=== PATIENT | male | born 1965 | race Caucasian/White ===

== ENCOUNTER → 2016-05-07 | Outpatient (REF) | payer OTHER ==
[2016-05-07 11:52] LABS: BASO # 0.1 K/mm3 (0.0-0.2); BASO % 0.7 % (0.0-1.0); EOS # 0.4 K/mm3 (0.0-0.50); EOS % 3.6 % (0.0-3.0); LARGE UNSTAINED CELL # 0.1 K/mm3 (0.0-0.4); LYMPH # 2.1 K/mm3 (1.5-4.5); LYMPH % 17.4 % (24.0-44.0); MEAN CORPUSCULAR HEMOGLOBIN 30.5 pg (27.0-33.0); MEAN CORPUSCULAR HGB CONC 33.1 g/dl (32.0-36.5); MEAN CORPUSCULAR VOLUME 92.2 fl (80.0-96.0); MONO # 0.6 K/mm3 (0.0-0.8); MONO % 5.1 % (0.0-5.0); NEUTROPHILS # 8.2 K/mm3 (1.8-7.7); NEUTROPHILS % 72.2 % (36.0-66.0); PLATELET COUNT, AUTOMATED 220 k/mm3 (150-450); RED CELL DISTRIBUTION WIDTH 13.4 % (11.5-14.5); WHITE BLOOD COUNT 11.3 K/mm3 (4.0-10.0)
[2016-05-07 12:12] LABS: ALBUMIN 4.2 GM/DL (3.2-5.2); ALBUMIN/GLOBULIN RATIO 1.35 (1.00-1.93); ALKALINE PHOSPHATASE 82 U/L (45-117); ALT/SGPT 29 U/L (12-78); ANION GAP 9 MEQ/L (8-16); AST/SGOT 18 U/L (15-37); BILIRUBIN,TOTAL 0.5 MG/DL (0.2-1.0); BLOOD UREA NITROGEN 17 MG/DL (7-18); CALCIUM LEVEL 9.3 MG/DL (8.5-10.1); CARBON DIOXIDE LEVEL 28 MEQ/L (21-32); CHLORIDE LEVEL 107 MEQ/L (98-107); CHOLESTEROL LEVEL 148 MG/DL (<200); CREATININE FOR GFR 1.06 MG/DL (0.70-1.30); GLOMERULAR FILTRATION RATE > 60.0 (>56); GLUCOSE, FASTING 94 MG/DL (70-105); POTASSIUM SERUM 4.2 MEQ/L (3.5-5.1); SODIUM LEVEL 144 MEQ/L (136-145); TOTAL PROTEIN 7.3 GM/DL (6.4-8.2); TRIGLYCERIDES LEVEL 146 MG/DL (<150)
== END ==
LOC: M SFHCCLAY 09:00
PROVIDERS: ATTEND Family Medicine
DX: R51 Headache (principal); R40.4 Transient alteration of awareness; E78.2 Mixed hyperlipidemia

== ENCOUNTER → 2016-05-27 | Outpatient (REF) | payer OTHER ==
[2016-05-27 13:43] LABS: BASO # 0.1 K/mm3 (0.0-0.2); BASO % 0.6 % (0.0-1.0); EOS # 0.2 K/mm3 (0.0-0.50); EOS % 2.2 % (0.0-3.0); LARGE UNSTAINED CELL # 0.2 K/mm3 (0.0-0.4); LARGE UNSTAINED CELL % 1.4 % (0.0-4.0); LYMPH # 2.5 K/mm3 (1.5-4.5); LYMPH % 20.9 % (24.0-44.0); MEAN CORPUSCULAR HEMOGLOBIN 30.4 pg (27.0-33.0); MEAN CORPUSCULAR HGB CONC 33.3 g/dl (32.0-36.5); MEAN CORPUSCULAR VOLUME 91.3 fl (80.0-96.0); MONO # 0.6 K/mm3 (0.0-0.8); MONO % 5.4 % (0.0-5.0); NEUTROPHILS # 7.7 K/mm3 (1.8-7.7); NEUTROPHILS % 69.5 % (36.0-66.0); PLATELET COUNT, AUTOMATED 224 k/mm3 (150-450); RED CELL DISTRIBUTION WIDTH 13.4 % (11.5-14.5)
[2016-05-27 13:56] LABS: ALBUMIN 4.2 GM/DL (3.2-5.2); ALBUMIN/GLOBULIN RATIO 1.35 (1.00-1.93); ALKALINE PHOSPHATASE 76 U/L (45-117); ALT/SGPT 33 U/L (12-78); ANION GAP 8 MEQ/L (8-16); AST/SGOT 16 U/L (15-37); BILIRUBIN,TOTAL 0.6 MG/DL (0.2-1.0); BLOOD UREA NITROGEN 17 MG/DL (7-18); CALCIUM LEVEL 9.5 MG/DL (8.5-10.1); CARBON DIOXIDE LEVEL 24 MEQ/L (21-32); CHLORIDE LEVEL 109 MEQ/L (98-107); CREATININE FOR GFR 0.96 MG/DL (0.70-1.30); GLOMERULAR FILTRATION RATE > 60.0 (>56); GLUCOSE, FASTING 97 MG/DL (70-105); POTASSIUM SERUM 4.4 MEQ/L (3.5-5.1); SODIUM LEVEL 141 MEQ/L (136-145); TOTAL PROTEIN 7.3 GM/DL (6.4-8.2)
[2016-05-27 14:44] LABS: ERYTHROCYTE SEDIMENTATION RATE 5 mm/hr (0-20)
== END ==
LOC: M LABNEURO 12:55
PROVIDERS: ATTEND Psychiatry & Neurology Neurology
DX: R51 Headache (principal)

== ENCOUNTER → 2016-11-26 | Outpatient (CLI) | payer OTHER ==
--- NOTE | 2016-11-27 01:27 | REP ---
Clinical: Chest pain . Comparison: None . Technique: PA and lateral. Findings: The mediastinum and cardiac silhouette are normal. The lung locke demonstrate presumed chronic biapical scarring without acute consolidation, effusion, or pneumothorax. The skeletal structures are intact and normal. Impression: 1. Chronic-appearing biapical scarring. 2. No acute cardiopulmonary process. 3. If the patient remains symptomatic consider chest CT for further investigation.
== END ==
LOC: M CLY 08:23
PROVIDERS: ATTEND Family Medicine
DX: R07.9 Chest pain, unspecified (principal)

== ENCOUNTER → 2017-05-27 | Outpatient (REF) | payer OTHER ==
[2017-05-27 11:50] LABS: ALBUMIN 4.1 GM/DL (3.2-5.2); ALBUMIN/GLOBULIN RATIO 1.28 (1.00-1.93); ALKALINE PHOSPHATASE 71 U/L (45-117); ALT/SGPT 20 U/L (12-78); ANION GAP 4 MEQ/L (8-16); AST/SGOT 15 U/L (7-37); BILIRUBIN,TOTAL 0.8 MG/DL (0.2-1.0); BLOOD UREA NITROGEN 13 MG/DL (7-18); C REACTIVE PROTEIN QUANTITATIV < 0.30 MG/DL (0.00-0.30); CALCIUM LEVEL 8.9 MG/DL (8.5-10.1); CARBON DIOXIDE LEVEL 28 MEQ/L (21-32); CHLORIDE LEVEL 109 MEQ/L (98-107); CHOLESTEROL LEVEL 144 MG/DL (<200); CHOLESTEROL RISK RATIO 3.512 (<5); CREATININE FOR GFR 1.03 MG/DL (0.70-1.30); GLOMERULAR FILTRATION RATE > 60.0 (>56); GLUCOSE, FASTING 73 MG/DL (70-100); HDL CHOLESTEROL 41 MG/DL (>40); LDL CHOLESTEROL 75.6 MG/DL (<100); NON-HDL-C 103 MG/DL; POTASSIUM SERUM 4.3 MEQ/L (3.5-5.1); RHEUMATOID FACTOR QUANT < 10.0 IU/ML (<15.0); SODIUM LEVEL 141 MEQ/L (136-145); TOTAL PROTEIN 7.3 GM/DL (6.4-8.2); TRIGLYCERIDES LEVEL 137 MG/DL (<150)
[2017-05-27 12:07] LABS: ERYTHROCYTE SEDIMENTATION RATE 2 mm/hr (0-20)
[2017-05-28 14:16] LABS: Lyme Disease IgG/IgM Antibodie <0.91 ISR (0.00-0.90); Lyme Disease IgM Ab Quantitati <0.80 index (0.00-0.79)
[2017-05-29 00:07] LABS: ANA (HEP2) Negative (.)
[2017-05-29 00:07] LABS: CYCLIC CITRULLINATED PEPTIDE 2 units (0-19)
== END ==
LOC: M SFHCCLAY 08:02
DX: M25.541 Pain in joints of right hand (principal); E78.2 Mixed hyperlipidemia; M25.542 Pain in joints of left hand
CPT/HCPCS: 85652

== ENCOUNTER → 2017-07-01 | Outpatient (REF) | payer OTHER ==
[2017-07-01 19:10] LABS: ESTIMATED AVERAGE GLUCOSE 111 MG/DL (60-110); HEMOGLOBIN A1c 5.5 %
[2017-07-01 19:32] LABS: FOLATE 11.7 NG/ML; TOTAL 25(OH) VITAMIN D 27.9 NG/ML (30.0-100.0)
[2017-07-01 19:34] LABS: ALBUMIN 4.1 GM/DL (3.2-5.2); ALBUMIN/GLOBULIN RATIO 1.32 (1.00-1.93); ALKALINE PHOSPHATASE 70 U/L (45-117); ALT/SGPT 19 U/L (12-78); ANION GAP 11 MEQ/L (8-16); AST/SGOT 11 U/L (7-37); BILIRUBIN,TOTAL 0.6 MG/DL (0.2-1.0); BLOOD UREA NITROGEN 11 MG/DL (7-18); CALCIUM LEVEL 8.8 MG/DL (8.5-10.1); CARBON DIOXIDE LEVEL 24 MEQ/L (21-32); CHLORIDE LEVEL 108 MEQ/L (98-107); CREATININE FOR GFR 1.05 MG/DL (0.70-1.30); GLOMERULAR FILTRATION RATE > 60.0 (>56); GLUCOSE, FASTING 129 MG/DL (70-100); POTASSIUM SERUM 4.2 MEQ/L (3.5-5.1); RHEUMATOID FACTOR QUANT < 10.0 IU/ML (<15.0); SODIUM LEVEL 143 MEQ/L (136-145); TOTAL PROTEIN 7.2 GM/DL (6.4-8.2)
[2017-07-01 19:41] LABS: ERYTHROCYTE SEDIMENTATION RATE 1 mm/hr (0-20)
[2017-07-01 20:51] LABS: BASO # 0.1 10^3/uL (0.0-0.2); BASO % 0.9 % (0.0-1.0); EOS # 0.3 10^3/uL (0.0-0.50); EOS % 2.6 % (0.0-3.0); HEMATOCRIT 36.9 % (42.0-52.0); HEMOGLOBIN 12.2 g/dl (13.5-17.5); IMMATURE GRANULOCYTE % 0.4 % (0-3.0); LYMPH # 2.7 10^3/uL (1.5-4.5); LYMPH % 24.2 % (24.0-44.0); MEAN CORPUSCULAR HEMOGLOBIN 29.9 pg (27.0-33.0); MEAN CORPUSCULAR HGB CONC 33.1 g/dl (32.0-36.5); MEAN CORPUSCULAR VOLUME 90.4 fl (80.0-96.0); MONO # 0.7 10^3/uL (0.0-0.8); MONO % 6.1 % (0.0-5.0); NEUTROPHILS # 7.3 10^3/uL (1.8-7.7); NEUTROPHILS % 65.8 % (36.0-66.0); PLATELET COUNT, AUTOMATED 269 10^3/uL (150-450); RED BLOOD COUNT 4.08 10^6/uL (4.30-6.10); RED CELL DISTRIBUTION WIDTH 13.6 % (11.5-14.5)
[2017-07-02 08:26] LABS: VITAMIN B12 LEVEL 357 PG/ML
[2017-07-05 11:28] LABS: ALBUMIN 4.52 GM/DL (3.29-5.55); ALBUMIN % 62.8 % (55.8-66.1); ALPHA-1-GLOBULIN % 4.5 % (2.9-4.9); ALPHA-1-GLOBULINS 0.32 GM/DL (0.17-0.41); ALPHA-2-GLOBULINS 0.81 GM/DL (0.42-0.99); ALPHA-2-GLOBULINS % 11.3 % (7.1-11.8); BETA-1-GLOBULINS 0.42 GM/DL (0.28-0.60); BETA-1-GLOBULINS % 5.8 % (4.7-7.2); BETA-2-GLOBULINS 0.27 GM/DL (0.19-0.55); BETA-2-GLOBULINS % 3.7 % (3.2-6.5); GAMMA GLOBULIN % 11.9 % (11.1-18.8); GAMMA GLOBULINS 0.86 GM/DL (0.65-1.58)
[2017-07-06 00:09] LABS: ANTI DOUBLE STRAND-DNA AB <1 IU/mL (0-9); ANTINUCLEAR ANTIBODIES DIRECT Negative (Negative); COPPER PLASMA 105 ug/dL (72-166); LEAD BLOOD ADULT 2 ug/dL (0-19); Lyme Disease IgG/IgM Antibodie <0.91 ISR (0.00-0.90); Lyme Disease IgM Ab Quantitati <0.80 index (0.00-0.79); SJOGREN'S ANTI SS-A <0.2 AI (0.0-0.9); SJOGREN'S ANTI SS-B <0.2 AI (0.0-0.9)
[2017-07-06 09:14] LABS: PTT LUPUS TYPE ANTICOAG SCREEN 0.9 (0-1.2)
== END ==
LOC: M LABNEURO 13:41
DX: G62.9 Polyneuropathy, unspecified (principal)

== ENCOUNTER 2017-07-16 08:30 | Day surgery (SDC) | payer OTHER ==
[2017-07-16] MEDS ORDERED: PROPOFOL 200 MG/20 ML VIAL As Ordered ×2 (09:09)
[2017-07-16] MEDS ORDERED: LIDOCAINE 2% INJ 100 MG/5 ML SDV (FOR ANES.) As Ordered (09:09)
== END 2017-07-16 10:50 | disposition home or self-care (01) ==
LOC: M OPP 08:30
DX: Z12.11 Encounter for screening for malignant neoplasm of colon (principal); Z80.0 Family history of malignant neoplasm of digestive organs; D12.3 Benign neoplasm of transverse colon; D12.0 Benign neoplasm of cecum; K62.1 Rectal polyp; K64.8 Other hemorrhoids; E78.5 Hyperlipidemia, unspecified; I44.60 Unspecified fascicular block; K62.5 Hemorrhage of anus and rectum; Z86.69 Personal history of other diseases of the nervous system and sense organs; Z87.09 Personal history of other diseases of the respiratory system; F17.210 Nicotine dependence, cigarettes, uncomplicated; Z79.82 Long term (current) use of aspirin; Z79.899 Other long term (current) drug therapy; Z80.1 Family history of malignant neoplasm of trachea, bronchus and lung; Z80.8 Family history of malignant neoplasm of other organs or systems
CPT/HCPCS: 45385

== ENCOUNTER → 2017-10-05 | Outpatient (CLI) | payer OTHER | LOC: M ONCR 10:18 | DX: D49.7 Neoplasm of unspecified behavior of endocrine glands and other parts of nervous system (principal) | CPT/HCPCS: 99201 ==

== ENCOUNTER 2017-10-12 14:38 | Outpatient (RCR) | payer OTHER | END 2017-10-29 | LOC: M ONCR 14:38 | DX: C70.0 Malignant neoplasm of cerebral meninges (principal) | CPT/HCPCS: 77300 ==

== ENCOUNTER 2017-11-02 09:28 | Outpatient (RCR) | payer OTHER | END 2017-11-28 | LOC: M ONCR 09:28 | DX: C70.0 Malignant neoplasm of cerebral meninges (principal) | CPT/HCPCS: 77336 ==

== ENCOUNTER 2017-11-29 14:24 | Outpatient (RCR) | payer OTHER | END 2017-12-29 | LOC: M ONCR 11-30 13:51 | DX: C70.0 Malignant neoplasm of cerebral meninges (principal) | CPT/HCPCS: 77336 ==

== ENCOUNTER → 2018-02-09 | Outpatient (CLI) | payer OTHER | LOC: M ONCR 09:49 | DX: C70.0 Malignant neoplasm of cerebral meninges (principal) | CPT/HCPCS: 99211 ==

== ENCOUNTER → 2018-05-27 | Outpatient (CLI) | payer OTHER ==
[~2018-05-27] MED LIST: ATOR1TAB21 PO; EQ A81TA PO; KEPP1SOL PO; KEPP1TAB PO
--- NOTE | 2018-05-27 10:17 | REP ---
LEFT HAND SERIES: Four views. HISTORY: Pain. FINDINGS: Four views of the left hand show overall normal mineralization. Joint spaces are preserved. No erosive changes seen. There is minimal spurring at the 1st MCP joint. Otherwise negative. 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 No erosive change. Otherwise negative
== END ==
LOC: M CLY 09:14
PROVIDERS: ATTEND Family Medicine
DX: M25.542 Pain in joints of left hand (principal); M19.042 Primary osteoarthritis, left hand

== ENCOUNTER → 2018-05-27 | Outpatient (REF) | payer OTHER ==
[2018-05-27 12:09] LABS: ALBUMIN 4.1 GM/DL (3.2-5.2); ALT/SGPT 19 U/L (12-78); BILIRUBIN,TOTAL 0.5 MG/DL (0.2-1.0); BLOOD UREA NITROGEN 15 MG/DL (7-18); CALCIUM LEVEL 9.3 MG/DL (8.5-10.1); CARBON DIOXIDE LEVEL 28 MEQ/L (21-32); CHLORIDE LEVEL 105 MEQ/L (98-107); CHOLESTEROL LEVEL 148 MG/DL (<200); CHOLESTEROL RISK RATIO 3.363 (<5); CREATININE FOR GFR 1.06 MG/DL (0.70-1.30); GLOMERULAR FILTRATION RATE > 60.0 (>56); GLUCOSE, FASTING 78 MG/DL (70-100); HDL CHOLESTEROL 44 MG/DL (>40); LDL CHOLESTEROL 88 MG/DL (<100); NON-HDL-C 104 MG/DL; POTASSIUM SERUM 4.4 MEQ/L (3.5-5.1); SODIUM LEVEL 139 MEQ/L (136-145); TRIGLYCERIDES LEVEL 82 MG/DL (<150)
== END ==
LOC: M SFHCCLAY 09:01
PROVIDERS: ATTEND Family Medicine
DX: E78.2 Mixed hyperlipidemia (principal)

== ENCOUNTER → 2019-03-08 | Outpatient (REF) | payer OTHER ==
[~2019-03-08] MED LIST changes: +ASPI-117 PO; -EQ A81TA PO
[2019-03-08 17:50] LABS: BASO # 0.1 10^3/uL (0.0-0.2); BASO % 1.1 % (0.0-1.0); EOS # 0.4 10^3/uL (0.0-0.5); EOS % 5.5 % (0.0-3.0); HEMATOCRIT 42.5 % (42.0-52.0); HEMOGLOBIN 13.4 g/dl (13.5-17.5); LYMPH # 2.2 10^3/uL (1.5-5.0); LYMPH % 29.1 % (24.0-44.0); MEAN CORPUSCULAR HEMOGLOBIN 29.3 pg (27.0-33.0); MEAN CORPUSCULAR HGB CONC 31.5 g/dl (32.0-36.5); MEAN CORPUSCULAR VOLUME 92.8 fl (80.0-96.0); MONO # 0.6 10^3/uL (0.0-0.8); MONO % 7.4 % (0.0-5.0); NEUTROPHILS # 4.2 10^3/uL (1.5-8.5); NEUTROPHILS % 56.6 % (36.0-66.0); PLATELET COUNT, AUTOMATED 257 10^3/uL (150-450); RED BLOOD COUNT 4.58 10^6/uL (4.30-6.10); WHITE BLOOD COUNT 7.4 10^3/uL (4.0-10.0)
[2019-03-08 17:54] LABS: BLOOD UREA NITROGEN 15 MG/DL (7-18); CALCIUM LEVEL 9.1 MG/DL (8.5-10.1); CARBON DIOXIDE LEVEL 26 MEQ/L (21-32); CHLORIDE LEVEL 110 MEQ/L (98-107); CREATININE FOR GFR 1.13 MG/DL (0.70-1.30); GLOMERULAR FILTRATION RATE > 60.0 (>56); GLUCOSE, FASTING 97 MG/DL (70-100); POTASSIUM SERUM 4.6 MEQ/L (3.5-5.1); SODIUM LEVEL 143 MEQ/L (136-145)
== END ==
LOC: M LABDRAWC 17:02
PROVIDERS: ATTEND Neurological Surgery
DX: C70.9 Malignant neoplasm of meninges, unspecified (principal)

== ENCOUNTER → 2019-11-28 | Outpatient (REF) | payer OTHER ==
[2019-11-28 16:24] LABS: HEMATOCRIT 44.2 % (42.0-52.0); HEMOGLOBIN 14.2 g/dl (13.5-17.5); MEAN CORPUSCULAR HEMOGLOBIN 28.7 pg (27.0-33.0); MEAN CORPUSCULAR HGB CONC 32.1 g/dl (32.0-36.5); MEAN CORPUSCULAR VOLUME 89.3 fl (80.0-96.0); PLATELET COUNT, AUTOMATED 256 10^3/uL (150-450); RED BLOOD COUNT 4.95 10^6/uL (4.30-6.10); WHITE BLOOD COUNT 8.4 10^3/uL (4.0-10.0)
[2019-11-28 18:57] LABS: ALBUMIN 4.1 GM/DL (3.2-5.2); ALT/SGPT 25 U/L (12-78); BLOOD UREA NITROGEN 19 MG/DL (7-18); CALCIUM LEVEL 9.4 MG/DL (8.5-10.1); CARBON DIOXIDE LEVEL 28 MEQ/L (21-32); CHLORIDE LEVEL 106 MEQ/L (98-107); CHOLESTEROL LEVEL 141 MG/DL (<200); CHOLESTEROL RISK RATIO 3.357 (<5); GLOMERULAR FILTRATION RATE > 60.0 (>56); GLUCOSE, FASTING 60 MG/DL (70-100); HDL CHOLESTEROL 42 MG/DL (>40); LDL CHOLESTEROL 75 MG/DL (<100); NON-HDL-C 99 MG/DL; POTASSIUM SERUM 4.6 MEQ/L (3.5-5.1); SODIUM LEVEL 137 MEQ/L (136-145); TOTAL PROTEIN 7.4 GM/DL (6.4-8.2); TRIGLYCERIDES LEVEL 118 MG/DL (<150)
== END ==
LOC: M SFHCCLAY 16:04
PROVIDERS: ATTEND Family Medicine
DX: E78.2 Mixed hyperlipidemia (principal)

== ENCOUNTER → 2020-02-06 | Outpatient (CLI) | payer OTHER | LOC: M LABSMTC 13:56 | PROVIDERS: ATTEND Pediatrics | DX: Z11.59 Encounter for screening for other viral diseases (principal) ==

== ENCOUNTER → 2020-06-18 | Outpatient (CLI) | payer OTHER ==
--- NOTE | 2020-06-18 10:15 | REP ---
INDICATION: ACUTE BILATERAL LOW BACK PAIN COMPARISON: None. TECHNIQUE: AP, lateral, bilateral oblique, and coned-down views of the lumbar spine. FINDINGS: Alignment and lordosis maintained. Vertebral bodies are intact. Disc spaces are relatively normal/age-appropriate. No acute fracture/compression injury or subluxation. No obvious spondylolysis or spondylolisthesis. IMPRESSION: Mild generalized age-related changes. If the patient remains symptomatic consider MRI for further investigation. <Electronically signed by Adarsh Mitchell > 06/18/20 1012
== END ==
LOC: M CLY 09:43
PROVIDERS: ATTEND Physician Assistant
DX: M54.5 Low back pain (principal)

== ENCOUNTER → 2020-11-21 | Outpatient (REF) | payer OTHER ==
[2020-11-21 12:50] LABS: BASO # 0.1 10^3/uL (0.0-0.2); BASO % 0.9 % (0.0-1.0); EOS # 0.4 10^3/uL (0.0-0.5); EOS % 3.8 % (0.0-3.0); HEMATOCRIT 44.6 % (42.0-52.0); HEMOGLOBIN 14.3 g/dl (13.5-17.5); LYMPH % 20.3 % (24.0-44.0); MEAN CORPUSCULAR HEMOGLOBIN 28.4 pg (27.0-33.0); MEAN CORPUSCULAR HGB CONC 32.1 g/dl (32.0-36.5); MEAN CORPUSCULAR VOLUME 88.5 fl (80.0-96.0); MONO # 0.7 10^3/uL (0.0-0.8); MONO % 6.9 % (2.0-8.0); NEUTROPHILS # 6.6 10^3/uL (1.5-8.5); NEUTROPHILS % 67.5 % (36.0-66.0); PLATELET COUNT, AUTOMATED 268 10^3/uL (150-450); RED BLOOD COUNT 5.04 10^6/uL (4.30-6.10); WHITE BLOOD COUNT 9.8 10^3/uL (4.0-10.0)
[2020-11-21 13:05] LABS: ALT/SGPT 20 U/L (12-78); BILIRUBIN,TOTAL 0.7 MG/DL (0.2-1.0); BLOOD UREA NITROGEN 15 MG/DL (7-18); CALCIUM LEVEL 9.3 MG/DL (8.5-10.1); CARBON DIOXIDE LEVEL 28 MEQ/L (21-32); CHLORIDE LEVEL 106 MEQ/L (98-107); CHOLESTEROL LEVEL 221 MG/DL (<200); GLOMERULAR FILTRATION RATE > 60.0 (>56); GLUCOSE, FASTING 91 MG/DL (70-100); HDL CHOLESTEROL 41 MG/DL (>40); LDL CHOLESTEROL 144 MG/DL (<100); MAGNESIUM LEVEL 2.4 MG/DL (1.8-2.4); NON-HDL-C 180 MG/DL; POTASSIUM SERUM 4.8 MEQ/L (3.5-5.1); SODIUM LEVEL 141 MEQ/L (136-145); TOTAL PROTEIN 7.1 GM/DL (6.4-8.2); TRIGLYCERIDES LEVEL 181 MG/DL (<150)
== END ==
LOC: M SFHCCLAY 09:18
PROVIDERS: ATTEND Family Medicine
DX: E78.2 Mixed hyperlipidemia (principal); R12 Heartburn

== ENCOUNTER → 2020-12-11 | Outpatient (CLI) | payer OTHER ==
[~2020-12-11] MED LIST changes: +PANT40TA29 PO; +TUMS500C PO
== END ==
LOC: M LABSMTC 11:00
PROVIDERS: ATTEND Anesthesiology
DX: Z01.812 Encounter for preprocedural laboratory examination (principal); Z11.52 Encounter for screening for COVID-19

== ENCOUNTER 2020-12-16 11:09 | Day surgery (SDC) | payer OTHER ==
[~2020-12-16] VITALS: Ht 177.8 cm; Wt 80.7 kg
[~2020-12-16 11:09] MED LIST changes: +LIDOCAINE 2% 100MG/5ML SDV (FOR ANES.) As Ordered ONE; +NS 1,000 ML IV ONE; +fentaNYL 100 MCG/2 ML INJECTION (J3010) As Ordered ONE; +propofoL 500 MG/50 ML VIAL As Ordered ONE
--- OUTSIDE RECORDS SUMMARY | 2020-12-16 11:12 | CCD | Continuity of Care Document ---
Author Author Jim COTTER Organization Unknown Address [address] [place] [address] Phone [phone] Care Team Providers Care Supervisory Clerk Name Role Phone J Carlos Mcgill D.O. AUTM [phone] Problems Active Problems Provider Date Intracranial meningioma Azalea Arthur M.D. Onset: 8 Social History Type Date Description Comments Sex Unknown Allergies, Adverse Reactions, Alerts Description No Known Drug Allergies Medications Active Medications SIG Qnty Indications Ordering Provide r Date Keppra 500mg Tablets 1 by mouth twice a day 60tabs Azalea Arthur M.D. 01/04/2018 Immunizations Description No Information Available Vital Signs Description No Information Available Results Description No Information Available Procedures Date Code Description Status 11/08/2020 86271 MRI Brain W/O Contrast, Followed By Contrast Completed 11/08/2020 36324 MRI Brain W/O Contrast, Followed By Contrast Completed 07/22/2020 36428 MRI Brain W/O Contrast, Followed By Contrast Completed 07/22/2020 08692 MRI Brain W/O Contrast, Followed By Contrast Completed Medical Devices Description No Information Available Encounters Description No Information Available Assessments Date Code Description Provider 11/08/2020 C70.9 Malignant neoplasm of meninges, unspecified Shirin Arthur M.D. 11/08/2020 C70.9 Malignant neoplasm of meninges, unspecified MRI 11/08/2020 I67.89 Other cerebrovascular disease Ab walter Arthur M.D. 11/08/2020 I67.89 Other cerebrovascular disease MR I 11/08/2020 Y84.2 Radiological procedu re and radiotherapy as the cause of abnormal reaction of the patient, or of later complication, without mention of misadventure at the time of the procedure Shirin Arthur M.D. 11/08/2020 Y84.2 Radiological procedu re and radiotherapy as the cause of abnormal reaction of the patient, or of later complication, without mention of misadventure at the time of the procedure MRI 07/22/2020 C70.9 Malignant neoplasm of meninges, unspecified Shirin Arthur M.D. 07/22/2020 C70.9 Malignant neoplasm of meninges, unspecified MRI Plan of Treatment No Information Available Functional Status Description No Information Available Mental Status Description No Information Available Referrals Refer to Reason for Referral Status Appt Date Created Created
--- OUTSIDE RECORDS SUMMARY | 2020-12-16 11:12 | CCD | Continuity of Care Document ---
Author Author Jim COTTER Organization Unknown Address [address] [place] [address] Phone [phone] Care Team Providers Care Electronic Organ Mechanic Name Role Phone J Carlos Mcgill D.O. AUTM [phone] Problems Active Problems Provider Date Intracranial meningioma [...] Information Available Procedures Date Code Description Status 07/22/2020 72874 MRI Brain W/O Contrast, Followed By Contrast Completed 07/22/2020 30324 MRI Brain W/O Contrast, Followed By Contrast Completed Medical Devices Description No Information Available Encounters Description No Information Available Assessments Date Code Description Provider 07/22/2020 C70.9 Malignant neoplasm of meninges, unspecified Shirin Arthur M.D. 07/22/2020 C70.9 Malignant neoplasm of meninges, unspecified MRI Plan of Treatment No Information Available Functional Status Description No Information Available Mental Status Description No Information Available Referrals Refer to Reason for Referral Status Appt Date Created
--- OUTSIDE RECORDS SUMMARY | 2020-12-16 11:12 | CCD ---
Author Author [facility] Organization [facility] Address Unknown Phone Unavailable Care Team Providers Care Furnace Mechanic Name Role Phone J Carlos Mcgill Unavailable PROBLEMS Type Condition ICD9-CM Code [id number] Code Onset Dates Condition S tatus W/U Status Risk SNOMED Code Notes Problem Acute left-sided low back pain with left-sided sciatica M54.42 Active confirmed 904296461 Problem Hx of colonic polyp Z86.010 Active confirmed 870938925 Problem Mixed hyperlipidemia E78.2 Active confirmed 028867026 Problem Meningioma, cerebral D32.0 Active confirmed 852435045 ALLERGIES No Known Allergies ENCOUNTERS from 1965 to 2020-11-22 Encounter Location Date Provider Diagnosis [address] [phone] [place] [address] Oct, J Carlos Mcgill Mixed hyperlipidemia E78.2 ; Meningioma, cerebral D32.0 ; Heartburn R12 ; Left lumbar radiculopathy M54.16 ; Tobacco abuse Z72.0 and Hx of colonic polyp Z86.010 IMMUNIZATIONS Vaccine Route Administration Date Status Moderna #2 dose COVID-19(given elsewhere) SARSCOV2 VAC 100MC G/0.5ML IM Unknown June 14, 2020 Administered COVID-19 dose #1 given elsewhere Unspecified Unknown Apr Administered SOCIAL HISTORY Tobacco Use: Social History Observation Description Date Details (start date - stop date) Current some day smoker Sex Assigned At : Social History Observation Description Sex Assigned At Unknown Audit Question Answer Notes Total Score: 0 Interpretation: Alcohol Education Language: Question Answer Notes Languages spoken: [place] Gnosticism: Question Answer Notes Gnosticism 33 None Sexual Hx: Question Answer Notes Had sex in the last 12 months (vaginal, oral, or anal)? No Have you ever had an STD? No Drug and Alcohol Question Answer Notes Total Score: 0 Interpretation: No problems reported Alcohol Screening: Question Answer Notes Did you have a drink containing alcohol in the past year? No Points 0 Interpretation Negative Tobacco Use: Question Answer Notes Are you a: current some day smoker Additional Findings: Tobacco User Moderate cigarette smoker (10-19 cigs/day) Smoking Cessation Information Given 11/21/2020 REASON FOR REFERRAL No Information VITAL SIGNS Weight 183.12 lbs Oct, Weight-kg 83.06 kg Oct, Height 5'10.5" in Oct, BMI 25.90 kg/m2 Oct, Heart Rate 62 /min Oct, Respiratory Rate 16 /min Oct, Temperature 98.3 degrees Fahrenheit Oct, Oximetry 97ra Oct, Blood pressure systolic 119 mm Hg Oct, Blood pressure diastolic 75 mm Hg Oct, MEDICATIONS Medication SIG (Take, Route, Frequency, Duration) Notes Start Da te End Date Status Atorvastatin Calcium 20 MG 1 tablet Orally Once a day for 90 day(s) Active Chantix 1 MG 1 tablet Orally Twice a day for 90 days Active Famotidine 40 MG 1 tablet at bedtime Orally Once a day for 90 day(s) Active PROCEDURES No Information RESULTS Component Value Reference Range CBC with Differential Reviewed date:11/21/2020 13:41:29 Interpretation:Normal Performing Lab:[facility], [facility] [address] [address] , ,[place] [address] WHITE BLOOD COUNT 9.8 4.0-10.0 RED BLOOD COUNT 5.04 4.30-6.10 HEMOGLOBIN 14.3 13.5-17.5 HEMATOCRIT 44.6 42.0-52.0 MEAN CORPUSCULAR VOLUME 88.5 80.0-96.0 MEAN CORPUSCULAR HEMOGLOBIN 28.4 27.0-33.0 MEAN CORPUSCULAR HGB CONC 32.1 32.0-36.5 RED CELL DISTRIBUTION WIDTH 14.2 11.5-14.5 PLATELET COUNT, AUTOMATED 268 150-450 NEUTROPHILS % 67.5 36.0-66.0 LYMPH % 20.3 24.0-44.0 MONO % 6.9 2.0-8.0 EOS % 3.8 0.0-3.0 BASO % 0.9 0.0-1.0 NEUTROPHILS # 6.6 1.5-8.5 LYMPH # 2.0 1.5-5.0 MONO # 0.7 0.0-0.8 EOS # 0.4 0.0-0.5 BASO # 0.1 0.0-0.2 Comprehensive Metabolic Profile (CMP) Reviewed date:11/21/2020 13:41:29 Interpretation:Normal Performing Lab:[facility] [address] [place] [address] , ,[place] [address] GLUCOSE, FASTING 91 70-100 BLOOD UREA NITROGEN 15 7-18 CREATININE FOR GFR 1.20 0.70-1.30 GLOMERULAR FILTRATION RATE > 60.0 >56 SODIUM LEVEL 141 136-145 POTASSIUM SERUM 4.8 3.5-5.1 CHLORIDE LEVEL 106 98-107 CARBON DIOXIDE LEVEL 28 21-32 CALCIUM LEVEL 9.3 8.5-10.1 AST/SGOT 14 7-37 ALT/SGPT 20 12-78 ALKALINE PHOSPHATASE 63 45-117 BILIRUBIN,TOTAL 0.7 0.2-1.0 TOTAL PROTEIN 7.1 6.4-8.2 ALBUMIN 4.0 3.2-5.2 ALBUMIN/GLOBULIN RATIO 1.3 LIPID PANEL (CARDIAC RISK) Reviewed date:11/21/2020 13:41:29 Interpretation:Abnormal Performing Lab:[facility] [address] [facility] [address] , ,[place] [address] TRIGLYCERIDES LEVEL 181 <150 CHOLESTEROL LEVEL 221 <200 HDL CHOLESTEROL 41 >40 LDL CHOLESTEROL 144 <100 NON-HDL-C 180 CHOLESTEROL RISK RATIO 5.390 <5 MAGNESIUM LEVEL Reviewed date:11/21/2020 13:41:29 Interpretation:Normal Performing Lab:[facility] [address] [facility] [address] , ,[place] [address] MAGNESIUM LEVEL 2.4 1.8-2.4 REASON FOR VISIT Patient states he has had some burning to outer aspect of right foot intermitten tly over past month- denies any injury. MEDICAL (GENERAL) HISTORY Type Description Date Medical History Seizure? Medical History Hyperlipidemia Medical History Colon polyps Medical History Malignant meningioma grade 3 - excision Dr Cali 07/2017 followed by radiation x 2 months- recurrence Mar 2019 Surgical History Colonoscopy- polyps- 3 yr f/u 06/2017 Surgical History Craniotomy- removal meningioma 07/2017 Surgical History Gamma knife- ? recurrent meningioma 03/20 19 Hospitalization History Seizure, [facility] 1999 Hospitalization History Collapsed lung 1988 Goals Section No Information Health Concerns No Information MEDICAL EQUIPMENT No Information MENTAL STATUS No Information FUNCTIONAL STATUS No Information ASSESSMENTS Encounter Date Diagnosis Assessment Notes Treatment Notes Treatm ent Clinical Notes Oct, Mixed hyperlipidemia (ICD-10 - E78.2) Lipids are well controlled. Will update labs annually in fall. Pt agreeable. Oct, Meningioma, cerebral (ICD-10 - D32.0) Pt is currently asymptomatic and he is following with Dr Cali. He is no longer following with radiation, Dr Ham and neurology, Dr Mei Arthur. Oct, Heartburn (ICD-10 - R12) Cont famotidne daily to see if helps. Pt agreeable. Oct, Left lumbar radiculopathy (ICD-10 - M54.16) No tx at this time consider PT or MRI if symptoms worsen or persist. Discussed seeing neurology for possible NCV but declines as well. He does have some leg weakness at times so he will consider. Pt is agreeable. Oct, Tobacco abuse (ICD-10 - Z72.0) He is not a candidate for wellbutrin. Oct, Hx of colonic polyp (ICD-10 - Z86.010) He has colonoscopy planned around Nov. PLAN OF TREATMENT Medication Medication Name Sig Start Date Stop Date Atorvastatin Calcium 20 MG 1 tablet Orally Once a day for 90 day (s) Famotidine 40 MG 1 tablet at bedtime Orally Once a day for 90 da y(s) Treatment Notes Assessment Notes Clinical Notes Mixed hyperlipidemia Lipids are well con trolled. Will update labs annually in fall. Pt agreeable. Meningioma, cerebral Pt is currently asy mptomatic and he is following with Dr Cali. He is no longer following with radiation, Dr Ham and neurology, Dr Mei Arthur. Heartburn Cont famotidne daily to see if helps. Pt agreeable. Left lumbar radiculopathy No tx at this time consider PT or MRI if symptoms worsen or persist. Discussed seeing neurology for possible NCV but declines as well. He does have some leg weakness at times so he will consider. Pt is agreeable. Tobacco abuse He is not a candidat e for wellbutrin. Hx of colonic polyp He has colonoscopy p lanned around Nov. Next Appt Details 6 Months Reason: Provider Name:J Carlos Mcgill, 09:00:00 AM, [address] , , [place], [address], Insurance Providers Payer Name Payer Address Payer Phone Insured Name Patient Relati onship to Insured Coverage Start Date Coverage End Date [facility] [place] [address] [facility] [phone] OLAF DAVIS self
--- OUTSIDE RECORDS SUMMARY | 2020-12-16 11:13 | CCD ---
Author Author [facility] Organization [facility] Address Unknown Phone Unavailable Care Team Providers Care Security Test Engineer Name Role Phone Charlebois, A Niki RPA C Unavailable Unavailable Charlebois, A Niki RPA C Unavailable Unavailable Charlebois, A Niki RPA C Unavailable Unavailable Charlebois, A Niki RPA C Unavailable Unavailable Charlebois, A Niki RPA C Unavailable Unavailable Charlebois, A Niki RPA C Unavailable Unavailable Charlebois, A Niki RPA C Unavailable Unavailable Charlebois, A Niki RPA C Unavailable Unavailable Charlebois, A Niki RPA C Unavailable Unavailable Charlebois, A Niki RPA C Unavailable Unavailable Charlebois, A Niki RPA C Unavailable Unavailable Charlebois, A Niki RPA C Unavailable Unavailable Charlebois, A Niki RPA C Unavailable Unavailable Charlebois, A Niki RPA C Unavailable Unavailable Charlebois, A Niki RPA C Unavailable Unavailable Charlebois, A Niki RPA C Unavailable Unavailable Charlebois, A Niki RPA C Unavailable Unavailable Charlebois, A Niki RPA C Unavailable Unavailable Charlebois, A Niki RPA C Unavailable Unavailable Charlebois, A Niki RPA C Unavailable Unavailable Charlebois, A Niki RPA C Unavailable Unavailable Charlebois, A Niki RPA C Unavailable Unavailable Charlebois, A Niki RPA C Unavailable Unavailable Charlebois, A Niki RPA C Unavailable Unavailable Charlebois, A Niki RPA C Unavailable Unavailable Charlebois, A Niki RPA C Unavailable Unavailable Charlebois, A Niki RPA C Unavailable Unavailable Charlebois, A Niki RPA C Unavailable Unavailable Charlebois, A Niki RPA C Unavailable Unavailable Charlebois, A Niki RPA C Unavailable Unavailable Charlebois, A Niki RPA C Unavailable Unavailable Charlebois, A Niki RPA C Unavailable Unavailable Charlebois, A Niki RPA C Unavailable Unavailable QUAN, SAMMY RUSH Unavailable Unavailable QUAN, SAMMY RUSH Unavailable Unavailable QUAN, SAMMY RUSH Unavailable Unavailable QUAN, SAMMY RUSH Unavailable Unavailable QUAN, SAMMY RUSH Unavailable Unavailable QUAN, SAMMY RUSH Unavailable Unavailable QUAN, SAMMY RUSH Unavailable Unavailable QUAN, SAMMY RUSH Unavailable Unavailable QUAN, SAMMY RUSH Unavailable Unavailable QUAN, SAMMY RUSH Unavailable Unavailable QUAN, SAMMY RUSH Unavailable Unavailable QUAN, SAMMY RUSH Unavailable Unavailable QUAN, SAMMY RUSH Unavailable Unavailable QUAN, SAMMY RUSH Unavailable Unavailable QUAN, SAMMY RUSH Unavailable Unavailable QUAN, SAMMY RUSH Unavailable Unavailable QUAN, SAMMY RUSH Unavailable Unavailable QUAN, SAMMY RUSH Unavailable Unavailable QUAN, SAMMY RUSH Unavailable Unavailable QUAN, SAMMY RUSH Unavailable Unavailable QUAN, SAMMY RUSH Unavailable Unavailable QUAN, SAMMY RUSH Unavailable Unavailable QUAN, SAMMY RUSH Unavailable Unavailable QUAN, SAMMY RUSH Unavailable Unavailable QUAN, SAMMY RUSH Unavailable Unavailable QUAN, SAMMY RUSH Unavailable Unavailable QUAN, SAMMY RUSH Unavailable Unavailable QUAN, SAMMY RUSH Unavailable Unavailable QUAN, SAMMY RUSH Unavailable Unavailable QUAN, SAMMY RUSH Unavailable Unavailable QUAN, SAMMY RUSH Unavailable Unavailable QUAN, SAMMY RUSH Unavailable Unavailable QUAN, SAMMY RUSH Unavailable Unavailable QUAN, SAMMY RUSH Unavailable Unavailable QUAN, SAMMY RUSH Unavailable Unavailable QUAN, SAMMY RUSH Unavailable Unavailable QUAN, SAMMY RUSH Unavailable Unavailable QUAN, SAMMY RUSH Unavailable Unavailable QUAN, SAMMY RUSH Unavailable Unavailable QUAN, SAMMY RUSH Unavailable Unavailable QUAN, SAMMY RUSH Unavailable Unavailable QUAN, SAMMY RUSH Unavailable Unavailable QUAN, SAMMY RUSH Unavailable Unavailable QUAN, SAMMY RUSH Unavailable Unavailable QUAN, SAMMY RUSH Unavailable Unavailable QUAN, SAMMY RUSH Unavailable Unavailable QUAN, SAMMY RUSH Unavailable Unavailable QUAN, SAMMY RUSH Unavailable Unavailable QUAN, SAMMY RUSH Unavailable Unavailable QUAN, SAMMY RUSH Unavailable Unavailable QUAN, CHRISTIANSON MD Unavailable Unavailable SAMMY GLASS MD Unavailable Unavailable SAMMY GLASS MD Unavailable Unavailable SAMMY GLASS MD Unavailable Unavailable SAMMY GLASS MD Unavailable Unavailable Mei COATS MD Unavailable Unavailable Mei COATS MD Unavailable Unavailable Mei COATS MD Unavailable Unavailable Mei COATS MD Unavailable Unavailable Mei COATS MD Unavailable Unavailable Mei COATS MD Unavailable Unavailable JORGE L S JADE RUSH Unavailable Unavailable JORGE L S JADE RUSH Unavailable Unavailable JORGE L S JADE RUSH Unavailable Unavailable JORGE L S JADE RUSH Unavailable Unavailable JORGE L S JADE RUSH Unavailable Unavailable JORGE L S JADE RUSH Unavailable Unavailable JORGE L S JADE RUSH Unavailable Unavailable JORGE L S JADE RUSH Unavailable Unavailable JORGE L S JADE RUSH Unavailable Unavailable JORGE L S JADE RUSH Unavailable Unavailable JORGE L S JADE RUSH Unavailable Unavailable JORGE L S JADE RUSH Unavailable Unavailable JORGE L S JADE RUSH Unavailable Unavailable JORGE L S JADE RUSH Unavailable Unavailable JORGE L S JADE RUSH Unavailable Unavailable JORGE L S JADE RUSH Unavailable Unavailable Mei COATS MD Unavailable Unavailable Mei COATS MD Unavailable Unavailable Mei COATS MD Unavailable Unavailable Mei COATS MD Unavailable Unavailable Mei COATS MD Unavailable Unavailable JORGE L S JADE RUSH Unavailable Unavailable JORGE L S JADE RUSH Unavailable Unavailable JORGE L S JADE RUSH Unavailable Unavailable JORGE L S JADE RUSH Unavailable Unavailable JORGE L S JADE RUSH Unavailable Unavailable JORGE L S JADE RUSH Unavailable Unavailable JORGE L S JADE RUSH Unavailable Unavailable Mei COATS MD Unavailable Unavailable Mei COATS MD Unavailable Unavailable Mei COATS MD Unavailable Unavailable Mei COATS MD Unavailable Unavailable JORGE L S JADE RUSH Unavailable Unavailable JORGE L S JADE RUSH Unavailable Unavailable JORGE L S JADE RUSH Unavailable Unavailable JORGE L S JADE RUSH Unavailable Unavailable Mei COATS MD Unavailable Unavailable Mei COATS MD Unavailable Unavailable Mei COATS MD Unavailable Unavailable JORGE L S JADE RUSH Unavailable Unavailable JORGE L S JADE RUSH Unavailable Unavailable JORGE L S JADE RUSH Unavailable Unavailable JORGE L S JADE RUSH Unavailable Unavailable JORGE L S JADE RUSH Unavailable Unavailable JORGE L S JADE RUSH Unavailable Unavailable JORGE L S JADE RUSH Unavailable Unavailable JORGE L S JADE RUSH Unavailable Unavailable Mie COATS MD Unavailable Unavailable Mei COATS MD Unavailable Unavailable Mei COATS MD Unavailable Unavailable Mei COATS MD Unavailable Unavailable JORGE L S JADE URSH Unavailable Unavailable Mei COATS MD Unavailable Unavailable Mei COATS MD Unavailable Unavailable Mei COATS MD Unavailable Unavailable Mei COATS MD Unavailable Unavailable Mei COATS MD Unavailable Unavailable Mei COATS MD Unavailable Unavailable JORGE L S JADE RUSH Unavailable Unavailable JORGE L Mei HANSEN MD Unavailable Unavailable Mei COATS MD Unavailable Unavailable Mei COATS MD Unavailable Unavailable Mei COATS MD Unavailable Unavailable Mei COATS MD Unavailable Unavailable Mei COATS MD Unavailable Unavailable Mei COATS MD Unavailable Unavailable Mei COATS MD Unavailable Unavailable Mei COATS MD Unavailable Unavailable Mei COATS MD Unavailable Unavailable Mei COATS MD Unavailable Unavailable Mei COATS MD Unavailable Unavailable Mei COATS MD Unavailable Unavailable Mei COATS MD Unavailable Unavailable Mei COATS MD Unavailable Unavailable Mei COATS MD Unavailable Unavailable Mei COATS MD Unavailable Unavailable Mei COATS MD Unavailable Unavailable Mei COATS MD Unavailable Unavailable Mei COATS MD Unavailable Unavailable Mei COATS MD Unavailable Unavailable Je, M Roberta PA-C Unavailable Unavailable Je, M Roberta PA-C Unavailable Unavailable Je, M Roberta PA-C Unavailable Unavailable Je, M Roberta PA-C Unavailable Unavailable Je, M Roberta PA-C Unavailable Unavailable Je, M Roberta PA-C Unavailable Unavailable Je, M Roberta PA-C Unavailable Unavailable Je, M Roberta PA-C Unavailable Unavailable Je, M Roberta PA-C Unavailable Unavailable Je, M Roberta PA-C Unavailable Unavailable Je, M Roberta PA-C Unavailable Unavailable Je, M Roberta PA-C Unavailable Unavailable Je, M Roberta PA-C Unavailable Unavailable Je, M Roberta PA-C Unavailable Unavailable Je, M Roberta PA-C Unavailable Unavailable Je, M Roberta PA-C Unavailable Unavailable Je, M Roberta PA-C Unavailable Unavailable Je, M Roberta PA-C Unavailable Unavailable Je, M Roberta PA-C Unavailable Unavailable Je, M Roberta PA-C Unavailable Unavailable Je, M Roberta PA-C Unavailable Unavailable Je, M Roberta PA-C Unavailable Unavailable Je, M Roberta PA-C Unavailable Unavailable Je, M Roberta PA-C Unavailable Unavailable Je, M Roberta PA-C Unavailable Unavailable Je, M Roberta PA-C Unavailable Unavailable Je, M Roberta PA-C Unavailable Unavailable Je, M Roberta PA-C Unavailable Unavailable Je, M Roberta PA-C Unavailable Unavailable Je, M Roberta PA-C Unavailable Unavailable Je, M Roberta PA-C Unavailable Unavailable Je, M Roberta PA-C Unavailable Unavailable Je, M Roberta PA-C Unavailable Unavailable Je, M Roberta PA-C Unavailable Unavailable Je, M Roberta PA-C Unavailable Unavailable HUIZENGA, Diogenes PINEDA DO Unavailable Unavailable HUIZENGA, Diogenes PINEDA DO Unavailable Unavailable HUIZENGA, Diogenes PINEDA DO Unavailable Unavailable HUIZENGA, Diogenes PINEDA DO Unavailable Unavailable HUIZENGA, Diogenes PINEDA DO Unavailable Unavailable HUIZENGA, Diogenes PINEDA DO Unavailable Unavailable HUIZENGA, Diogenes PINEDA DO Unavailable Unavailable HUIZENGA, Diogenes PINEDA DO Unavailable Unavailable HUIZENGA, Diogenes PINEDA DO Unavailable Unavailable HUIZENGA, Diogenes PINEDA DO Unavailable Unavailable HUIZENGA, Diogenes PINEDA DO Unavailable Unavailable HUIZENGA, Diogenes PINEDA DO Unavailable Unavailable HUIZENGA, Diogenes PINEDA DO Unavailable Unavailable HUIZENGA, Diogenes PINEDA DO Unavailable Unavailable HUIZENGA, Diogenes PINEDA DO Unavailable Unavailable HUIZENGA, Diogenes PINEDA DO Unavailable Unavailable HUIZENGA, Diogenes PINEDA DO Unavailable Unavailable HUIZENGA, Diogenes PINEDA DO Unavailable Unavailable HUIZENGA, Diogenes PINEDA DO Unavailable Unavailable HUIZENGA, Diogenes PINEDA DO Unavailable Unavailable HUIZENGA, Diogenes PINEDA DO Unavailable Unavailable HUIZENGA, Diogenes PINEDA DO Unavailable Unavailable HUIZENGA, Diogenes PINEDA DO Unavailable Unavailable HUIZENGA, Diogenes PINEDA DO Unavailable Unavailable HUIZENGA, Diogenes PINEDA DO Unavailable Unavailable HUIZENGA, Diogenes PINEDA DO Unavailable Unavailable HUIZENGA, Diogenes PINEDA DO Unavailable Unavailable HUIZENGA, Diogenes PNIEDA DO Unavailable Unavailable HUIZENGA, Diogenes PINEDA DO Unavailable Unavailable HUIZENGA, Diogenes PINEDA DO Unavailable Unavailable HUIZENGA, Diogenes PINEDA DO Unavailable Unavailable HUIZENGA, Diogenes PINEDA DO Unavailable Unavailable HUIZENGA, Diogenes PINEDA DO Unavailable Unavailable HUIZENGA, Diogenes PINEDA DO Unavailable Unavailable HUIZENGA, Diogenes PINEDA DO Unavailable Unavailable HUIZENGA, Diogenes PINEDA DO Unavailable Unavailable HUIZENGA, Diogenes PINEDA DO Unavailable Unavailable HUIZENGA, Diogenes PINEDA DO Unavailable Unavailable HUIZENGA, Diogenes PINEDA DO Unavailable Unavailable HUIZENGA, Diogenes PINEDA DO Unavailable Unavailable HUIZENGA, Diogenes PINEDA DO Unavailable Unavailable HUIZENGA, Diogenes PINEDA DO Unavailable Unavailable HUIZENGA, Diogenes PINEDA DO Unavailable Unavailable HUIZENGA, Diogenes PINEDA DO Unavailable Unavailable HUIZENGA, Diogenes PINEDA DO Unavailable Unavailable HUIZENGA, Diogenes PINEDA DO Unavailable Unavailable HUIZENGA, Diogenes PINEDA DO Unavailable Unavailable HUIZENGA, Diogenes PINEDA DO Unavailable Unavailable HUIZENGA, Diogenes PINEDA DO Unavailable Unavailable HUIZENGA, Diogenes PINEDA DO Unavailable Unavailable HUIZENGA, Diogenes PINEDA DO Unavailable Unavailable HUIZENGA, Diogenes PINEDA DO Unavailable Unavailable HUIZENGA, Diogenes PIENDA DO Unavailable Unavailable HUIZENGA, Diogenes PINEDA DO Unavailable Unavailable HUIZENGA, Diogenes PINEDA DO Unavailable Unavailable HUIZENGA, Diogenes PINEDA DO Unavailable Unavailable HUIZENGA, Diogenes PINEDA DO Unavailable Unavailable HUIZENGA, Diogenes PINEDA DO Unavailable Unavailable HUIZENGA, Diogenes PINEDA DO Unavailable Unavailable HUIZENGA, Diogenes PINEDA DO Unavailable Unavailable HUIZENGA, Diogenes PINEDA DO Unavailable Unavailable HUIZENGA, Diogenes PINEDA DO Unavailable Unavailable HUIZENGA, Diogenes PINEDA DO Unavailable Unavailable HUIZENGA, Diogenes PINEDA DO Unavailable Unavailable HUIZENGA, Diogenes PINEDA DO Unavailable Unavailable HUIZENGA, Diogenes PINEDA DO Unavailable Unavailable HUIZENGA, Diogenes PINEDA DO Unavailable Unavailable HUIZENGA, Diogenes PINEDA DO Unavailable Unavailable HUIZENGA, Diogenes PINEDA DO Unavailable Unavailable HUIZENGA, Diogenes PINEDA DO Unavailable Unavailable HUIZENGA, Diogenes PINEDA DO Unavailable Unavailable HUIZENGA, Diogenes PINEDA DO Unavailable Unavailable HUIZENGA, Diogenes PINEDA DO Unavailable Unavailable HUIZENGA, Diogenes PINEDA DO Unavailable Unavailable HUIZENGA, Diogenes PINEDA DO Unavailable Unavailable HUIZENGA, Diogenes PINEDA DO Unavailable Unavailable HUIZENGA, Diogenes PINEDA DO Unavailable Unavailable SHUBHAM HERNANDEZ Unavailable Unavailable SHUBHAM HERNANDEZ Unavailable Unavailable SHUBHAM HERNANDEZ Unavailable Unavailable SHUBHAM HERNANDEZ Unavailable Unavailable SHUBHAM HERNANDEZ Unavailable Unavailable SHUBHAM HERNANDEZ Unavailable Unavailable SHUBHAM HERNANDEZ Unavailable Unavailable SHUBHAM HERNANDEZ Unavailable Unavailable MARY, SHUBHAM FRANCES PA Unavailable Unavailable MARY, SHUBHAM FRANCES PA Unavailable Unavailable MARY, SHUBHAM FRANCES PA Unavailable Unavailable MARY, SHUBHAM FRANCES PA Unavailable Unavailable MARY, SHUBHAM FRANCES PA Unavailable Unavailable MARY, SHUBHAM FRANCES PA Unavailable Unavailable MARY, SHUBHAM FRANCES PA Unavailable Unavailable MARY, SHUBHAM FRANCES PA Unavailable Unavailable MARY, SHUBHAM FRANCES PA Unavailable Unavailable MARY, SHUBHAM FRANCES PA Unavailable Unavailable MARY, SHUBHAM FRANCES PA Unavailable Unavailable MARY, SHUBHAM FRANCES PA Unavailable Unavailable MARY, SHUBHAM FRANCES PA Unavailable Unavailable MARY, SHUBHAM FRANCES PA Unavailable Unavailable Re-disclosure Warning The records that you are about to access may contain information from federally-assisted alcohol or drug abuse programs. If such information is present, then the following federally mandated warning applies: This information has been disclosed to you from records protected by federal confidentiality rules (42 CFR part 2). The federal rules prohibit you from making any further disclosure of this information unless further disclosure is expressly permitted by the written consent of the person to whom it pertains or as otherwise permitted by 42 CFR part 2. A general authorization for the release of medical or other information is NOT sufficient for this purpose. The Federal rules restrict any use of the information to criminally investigate or prosecute any alcohol or drug abuse patient.The records that you are about to access may contain highly sensitive health information, the redisclosure of which is protected by Article 27-F of the [facility] Public Health law. If you continue you may have access to information: Regarding HIV / AIDS; Provided by facilities licensed or operated by the [facility] Office of Mental Health; or Provided by the [facility] Office for People With Developmental Disabilities. If such information is present, then the following [facility] mandated warning applies: This information has been disclosed to you from confidential records which are protected by state law. State law prohibits you from making any further disclosure of this information without the specific written consent of the person to whom it pertains, or as otherwise permitted by law. Any unauthorized further disclosure in violation of state law may result in a fine or senior care sentence or both. A general authorization for the release of medical or other information is NOT sufficient authorization for further disc losure. Allergies and Adverse Reactions Type Description Substance Reaction Status Data Source(s ) Propensity to adverse reactions NO KNOWN ALLERGIES NO KNOWN ALLERGIES [facility] Family History Family Member Name Family Member Gender Family Member Status Date o f Status Description Data Source(s) Unknown Unknown Problem MEDENT ([facility] Unknown Unknown Problem MEDENT ([facility], ) Encounters Encounter Providers Location Date Indications Data Source(s ) Outpatient Attender: JADE COATS MD 12/11/2020 12:00:00 AM EDT [facility] Outpatient [address] [place] [address] 11/21/2020 12:00:00 AM EDT eCW1 ([facility]) Outpatient Attender: JADE COATS MD [id number] 09/11/2020 12:00:00 AM T [facility] Outpatient Attender: Niki Carrero/Carlin/Fritz hinson/Santhosh 08/27/2020 11:30:00 AM EDT MEDENT ([facility] carlos manuel, ) Outpatient 07/16/2020 05:25:35 PM EDT [facility] 07/04/2020 03:40:04 PM EDT [facility] Out[facility] 07/04/2020 03:39:54 PM EDT [facility] Out[facility] 07/04/2020 03:39:24 PM EDT [facility] [address] [place] [address] 06/18/2020 12:00:00 AM EDT eCW1 ([facility]) Unknown [address] [place] [address] 06/18/2020 12:00:00 AM EDT eCW1 ([facility]) Outpatient Attender: JADE COATS MD [id number] 05/22/2020 12:00:00 AM T [facility] Outpatient [address] [place] [address] 05/20/2020 12:00:00 AM EDT eCW1 ([facility]) Outpatient Attender: SAMMY GLASS MD [email or web address] 12:00:00 AM EST - 04/19/2020 01:39:22 PM [facility] Outpatient Attender: JADE COATS MD [id number] 02/28/2020 12:00:00 AM [facility] Outpatient Referrer: JADE COATS MD 02/21/2020 12: 00:00 AM EST Malignant neoplasm of meninges, unspecified [facility] Malignant neoplasm of meninges, unspecif ied Outpatient Attender: JADE COATS MD 02/21/2020 12:00:00 AM [facility] Outpatient Attender: Roberta Wooten PA-C 01/26/2020 02:12 :00 PM [facility] 01/26/2020 12:00:00 AM [facility] eCW1 ([facility]) [facility] 01/26/2020 12:00:00 AM [facility] eCW1 ([facility]) Outpatient Referrer: JADE COATS MD 01/23/2020 12:00:[address], [facility] [address] 11/28/2019 12:00:00 AM EDT eCW1 ([facility]) Outpatient Attender: JADE COATS MD [id number] 11/22/2019 12:00:00 AM [facility] Outpatient Referrer: JADE COATS MD 11/22/2019 12: 00:00 AM EDT Malignant neoplasm of meninges, unspecified [facility] Malignant neoplasm of meninges, unspecif ied Outpatient Referrer: JADE COATS MD 11/09/2019 12:00:00 AM [facility] Outpatient Referrer: JADE COATS MD 11/08/2019 12:00:00 AM [facility] Emergency Attender: FRANCES HERNANDEZ PAReferrer: EDWIN CRUZ DO 07/18/2018 03:25:00 PM EDT - 07/18/2018 04:03:00 PM EDT [facility] pital Patient discharged. Immunizations Vaccine Date Status Description Data Source(s) COVID-19 VACCINE Moderna 06/17/2020 12:00:00 AM EDT completed [facility] Vaccine Series Complete: YESThis Data wa s Submitted to [facility] Via [employer]. COVID-19 VACC,MRNA(MODERNA)/PF 06/17/2020 12:00:00 AM EDT completed [facility] Moderna #2 dose COVID-19(given elsewhere) SARSCOV2 VAC 100MCG/0.5ML IM 06/14/2020 09:16:00 AM EDT completed eCW1 ([facility]) COVID-19 dose #1 given elsewhere Unspecified 05/17/2020 09:3 5:00 AM EDT completed eCW1 ([facility]) COVID-19 dose #1 given elsewhere Unspecified 05/17/2020 09:3 5:00 AM EDT completed eCW1 ([facility]) COVID-19 dose #1 given elsewhere Unspecified 05/17/2020 09:3 5:00 AM EDT completed eCW1 ([facility]) COVID-19 dose #1 given elsewhere Unspecified 05/17/2020 09:3 5:00 AM EDT completed eCW1 ([facility]) COVID-19 VACCINE Moderna 05/17/2020 12:00:00 AM EDT completed [facility] Vaccine Series Complete: NOThis Data was Submitted to [facility] Via [employer]. COVID-19 VACCINE, MRNA-1273, LNP-S (MODERNA)/PF 05/17/2020 1 2:00:00 AM EDT completed [facility] Medications Medication Brand Name Start Date Product Form Dose Route Admi nistrative Instructions Pharmacy Instructions Status Indications Reaction Description Data Source(s) POLYETHYLENE GLYCOL 3350 142 MG/ML Oral Solution [Miralax] M iralax 08/27/2020 12:00:00 AM EDT active M EDENT ([facility], ) magnesium citrate 58.2 MG/ML Oral Solution Magnesium Citrate 08/27/2020 12:00:00 AM EDT active MEDENT ([facility], ) pantoprazole 40 MG Delayed Release Oral Tablet Pantoprazole Sodium 08/27/2020 12:00:00 AM EDT ORAL active M EDENT ([facility], ) Cyclobenzaprine hydrochloride 10 MG Oral Tablet Cyclob enzaprine HCl 10 MG Cyclobenzaprine HCl 10 MG 06/18/2020 12:00:00 AM EDT 1.0 {tablet_at_bedtime_as_needed} active Cy clobenzaprine HCl 10 MG eCW1 ([facility]) Naprosyn 500 MG UNK 06/18/2020 12:00:00 AM EDT active Naprosyn 500 MG eCW1 ([facility]) Prednisone 20 MG Oral Tablet PredniSONE 20 MG PredniSONE 20 MG 06/18/2020 12:00:00 AM EDT active PredniSO NE 20 MG eCW1 ([facility]) Naprosyn 500 MG UNK 06/18/2020 12:00:00 AM EDT active Naprosyn 500 MG eCW1 ([facility]) Cyclobenzaprine hydrochloride 10 MG Oral Tablet Cyclob enzaprine HCl 10 MG Cyclobenzaprine HCl 10 MG 06/18/2020 12:00:00 AM EDT 1.0 {tablet_at_bedtime_as_needed} active Cy clobenzaprine HCl 10 MG eCW1 ([facility]) Prednisone 20 MG Oral Tablet PredniSONE 20 MG PredniSONE 20 MG 06/18/2020 12:00:00 AM EDT active PredniSO NE 20 MG eCW1 ([facility]) Famotidine 40 MG Oral Tablet Famotidine 40 MG 05/20/2020 12:00:00 A M EDT 1.0 {tablet_at_bedtime} active Famotidine 4 0 MG eCW1 ([facility]) Famotidine 40 MG Oral Tablet Famotidine 40 MG 05/20/2020 12:00:00 A M EDT 1.0 {tablet_at_bedtime} active Famotidine 4 0 MG eCW1 ([facility]) Famotidine 40 MG Oral Tablet Famotidine 40 MG 05/20/2020 12:00:00 A M EDT 1.0 {tablet_at_bedtime} active Famotidine 4 0 MG eCW1 ([facility]) gadobutrol (GADAVIST) contrast injection 7.5 mL [id number] 02/21/2020 03:15:00 PM EST 0.1 mL/kg Intravenous completed 7.5 mL (rounded from 7.94 mL = 0.1 mL/kg 79.4 kg), Intravenous, 1 TIME IMAGING, 02/21/20 at 1515, For 1 dose, Imaging Protocol
Do not mix or administer in the same IV line with other medi cations.
[facility] Medication administered onsite gadobutrol (GADAVIST) contrast injection 8 mL [id number] 11:45:00 AM EDT 0.1 mL/kg Intravenous completed 8 mL (ro unded from 8.07 mL = 0.1 mL/kg 80.7 kg), Intravenous, 1 TIME IMAGING, 11/22/19 at 1145, For 1 dose, Imaging Protocol
Do not mix or administer in the same IV line with other medicat ions.
[facility] Medication administered onsite Insurance Providers Payer name Policy type / Coverage type Policy ID Covered constitution party ID Covered constitution party's relationship to mcgraht Policy [place] Plan Information [facility] I [id number] Self [id number] [facility] [id number] Self [id number] [employer] MED[employer]ID [id number] S [id number] [facility] MEDICAID [id number] [facility] [id number] [facility] MEDICAID [id number] xxxxxxxxx [id number] [facility] [id number] [employer] MEDICAID [id number] S [id number] [facility] [id number] [facility] [id number] [facility] [id number] [facility] ([facility]) [id number] Self [id number] [facility] Health Maintenance Organization ([facility]) [id number] Self [id number] ANSI-Medicaid [id number] ANSI-Medicaid [id number] [facility] [id number] SP [id number] [facility] ([facility]) [id number] Self [id number] [facility] [id number] SP [id number] [facility] MEDICAID [id number] S [id number] [employer] [facility] MEDICAID [id number] S [id number] ANSI-Medicaid [id number] Problems, Conditions, and Diagnoses Code Display Name Description Problem Type Effective Dates Data Source(s) Y84.2 Radiological procedure and r adiotherapy as the cause of abnormal reaction of the patient, or of later complication, without mention of misadventure at the time of the procedure Radiological procedure and radiotherapy Diagnosis 04/19/2020 12:59:54 PM [facility] I67.89 Other cerebrovascular disease Other cerebrovascular di sease Diagnosis 04/19/2020 12:59:54 PM [facility] Z72.0 Tobacco use Tobacco use Diagnosis 04/19/2020 12:59:54 PM [facility] G40.909 Epilepsy, unspecified, not intractable, without status epilepticus Epilepsy, unspecified, not intractable, Diagnosis 04/19/2020 12:59:54 PM [facility] C80.1 Malignant (primary) neoplasm, unspecifie d Malignant (primary) neoplasm, unspecifie Diagnosis 04/19/2020 12:59:54 PM [facility] R07.9 Chest pain, unspecified Chest pain, unspecified Diagno sis 04/19/2020 12:59:54 PM [facility] E78.5 Hyperlipidemia, unspecified Hyperlipidemia, unspecifie d Diagnosis 04/19/2020 12:59:54 PM [facility] J30.9 Allergic rhinitis, unspecified ALLERGIC RHINITIS, UNSP ECIFIED Diagnosis 01/26/2020 02:12:00 PM [facility] Z86.010 [id number] Hx of colonic polyp Problem 05/20/2020 12:00 :00 AM EDT eC ([facility]) 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 [id number] 02/28/2020 12:00:00 AM [facility] J30.9 [id number] Allergic rhinitis, unspecified s easonality, unspecified trigger Problem 01/26/2020 12:00:00 AM EST eC1 ([facility]) Surgeries/Procedures Procedure Description Date Indications Data Source(s) MRI Brain W/O Contrast, Followed By Contrast 12:00:00 AM EDT MEDENT ([facility], ) MRI Brain W/O Contrast, Followed By Contrast 12:00:00 AM EDT MEDENT ([facility], ) OFFICE OUTPATIENT NEW 45 MINUTES 08/27/2020 12:00:00 A M EDT MEDENT ([facility], ) MRI Brain W/O Contrast, Followed By Contrast 12:00:00 AM EDT MEDENT ([facility], ) MRI Brain W/O Contrast, Followed By Contrast 12:00:00 AM EDT MEDENT ([facility], ) POCT AMB EKG <td>POCT AMB EKG</td><td>Rou giulaino</td><td>05/02/2020 11:25 PM EST</td><td> Chest pain, unspecified type</td><td> </td> 05/03/2020 04:25:00 AM EST Chest pain, unspecified type [facility] Chest pain, unspecified type MRI Brain W/O Contrast, Followed By Contrast 1 12:00:00 AM EST MEDENT ([facility], ) MRI Brain W/O Contrast, Followed By Contrast 12:00:00 AM EST MEDENT ([facility], ) MRI BRAIN BRAIN STEM W/O &W/CONTRAST MATERIAL <td>MR B RAIN WITH AND WITHOUT CONTRAST [id number]</td><td>Routine</td><td>11/22/2019 12:29 PM EDT</td><td> Malignant meningioma</td><td> </td> 11/22/2019 12:29:00 PM EDT Malignant meningioma [facility] Malignant meningioma Results ID Date Data Source MAGNESIUM LEVEL 11/21/2020 12:00:00 AM EDT eCW1 ([facility]) Name Value Range Interpretation Code Description Data Janice rce(s) Supporting Document(s) 2.4 1.8-2.4 MAGNESIUM LEVEL eCW1 ([facility]) ID Date Data Source LIPID PANEL (CARDIAC RISK) 11/21/2020 12:00:00 AM EDT eCW1 ( [facility]) Name Value Range Interpretation Code Description Data Janice rce(s) Supporting Document(s) Triglyceride [Mass/volume] in Serum or Plasma by calculation 181 <150 TRIGLYCERIDES LEVEL eCW1 ([facility]) Cholesterol [Moles/volume] in Serum or Plasma 221 <200 CHOLESTEROL LEVEL eCW1 ([facility]) Cholesterol in LDL [Mass/volume] in Serum or Plasma by calculation 144 <100 LDL CHOLESTEROL eC1 ([facility]) 5.390 <5 CHOLESTEROL RISK RATIO eCW1 ([facility]) 180 NON-HDL-C eCW1 ([facility]) Cholesterol in HDL [Moles/volume] in Serum or Plasma 41 >40 HDL CHOLESTEROL eCW1 ([facility]) ID Date Data Source Comprehensive Metabolic Profile (CMP) 11/21/2020 12:00:00 AM EDT eCW1 ([facility]) Name Value Range Interpretation Code Description Data Janice rce(s) Supporting Document(s) 91 70-100 GLUCOSE, FASTING eCW1 ([facility]) 15 7-18 BLOOD UREA NITROGEN eCW1 ([facility]) > 60.0 >56 GLOMERULAR FILTRATION RATE eCW 1 ([facility]) 141 136-145 SODIUM LEVEL eCW1 ([facility]) 4.8 3.5-5.1 POTASSIUM SERUM eCW1 ([facility]) 1.20 0.70-1.30 CREATININE FOR GFR eCW1 ([facility]) 106 98-107 CHLORIDE LEVEL eCW1 ([facility]) 9.3 8.5-10.1 CALCIUM LEVEL eCW1 ([facility]) 14 7-37 AST/SGOT eCW1 ([facility]) 28 21-32 CARBON DIOXIDE LEVEL eCW1 ([facility]) 20 12-78 ALT/SGPT eCW1 ([facility]) 63 45-117 ALKALINE PHOSPHATASE eCW1 ([facility]) 4.0 3.2-5.2 ALBUMIN eCW1 ([facility]) 7.1 6.4-8.2 TOTAL PROTEIN eCW1 ([facility]) 1.3 ALBUMIN/GLOBULIN RATIO eCW1 ([facility]) 0.7 0.2-1.0 BILIRUBIN,TOTAL eCW1 ([facility]) ID Date Data Source CBC with Differential 11/21/2020 12:00:00 AM EDT eCW1 ([facility]) Name Value Range Interpretation Code Description Data Janice rce(s) Supporting Document(s) 9.8 4.0-10.0 WHITE BLOOD COUNT eCW1 ([facility]) 14.3 13.5-17.5 HEMOGLOBIN eCW1 ([facility]) 44.6 42.0-52.0 HEMATOCRIT eCW1 ([facility]) 5.04 4.30-6.10 RED BLOOD COUNT eCW1 ([facility]) 88.5 80.0-96.0 MEAN CORPUSCULAR VOLUME e CW1 ([facility]) 28.4 27.0-33.0 MEAN CORPUSCULAR HEMOGLOB IN eCW1 ([facility]) 14.2 11.5-14.5 RED CELL DISTRIBUTION WID TH eCW1 ([facility]) 32.1 32.0-36.5 MEAN CORPUSCULAR HGB CONC eCW1 ([facility]) 268 150-450 PLATELET COUNT, AUTOMATED eCW1 ([facility]) 3.8 0.0-3.0 EOS % eCW1 ([facility]) 20.3 24.0-44.0 LYMPH % eCW1 ([facility]) 67.5 36.0-66.0 NEUTROPHILS % eCW1 ([facility]) 6.9 2.0-8.0 MONO % eCW1 ([facility]) 0.7 0.0-0.8 MONO # eCW1 ([facility]) 6.6 1.5-8.5 NEUTROPHILS # eCW1 ([facility]) 2.0 1.5-5.0 LYMPH # eCW1 ([facility]) 0.9 0.0-1.0 BASO % eCW1 ([facility]) 0.4 0.0-0.5 EOS # eCW1 ([facility]) 0.1 0.0-0.2 BASO # eCW1 ([facility]) ID Date Data Source [id number] 09/11/2020 01:43:33 PM EDT [facility] Name Value Range Interpretation Code Description Data Janice rce(s) Supporting Document(s) Progress Note [facility] OSXSHn6rDpLISmMl48/TSUxlHLBuq4KrPMagEHj0JFdvFPOxX0NqMGG5qY3zMCC4WCjRFmLaJcEqClA6 lbm [file] AgICAgICAgICAgICAgICAgICAgICAgICAgICAgICAgICAgICAgICAgICAgICAgICAgICAgICAgICAgDQ ogICAgICAgICAgICAgICAgICAgICAgICAgICAgICAg ICAgICAgICAgICAgICAgICAgICAgICAgICAgICAgICAgICAgICAgICAgICAgICAgICAgICAgICAgICAg ICAgICAgICAgDQogICAgICAgICAgICAgICAgICAgICAgICAgICAgICAgICAgICAgICAgICAgICAgICAg ICAgICAgICAgICAgICAgICAgICAgICAgICAgICAgIC AgICAgICAgICAgICAgICAgICAgDQogICAgICAgICAgICAgICAgICAgICAgICAgICAgICAgICAgICAgIC AgICAgICAgICAgICAgICAgICAgICAgICAgICAgICAgICAgICAgICAgICAgICAgICAgICAgICAgICAgIC AgDQogICAgICAgICAgICAgICAgICAgICAgICAgICAg ICAgICAgICAgICAgICAgICAgICAgICAgICAgICAgICAgICAgICAgICAgICAgICAgICAgICAgICAgICAg ICAgICAgICAgICAgDQogICAgICAgICAgICAgICAgICAgICAgICAgICAgICAgICAgICAgICAgICAgICAg ICAgICAgICAgICAgICAgICAgICAgICAgICAgICAgIC AgICAgICAgICAgICAgICAgICAgICAgDQogICAgICAgICAgICAgICAgICAgICAgICAgICAgICAgICAgIC AgICAgICAgICAgICAgICAgICAgICAgICAgICAgICAgICAgICAgICAgICAgICAgICAgICAgICAgICAgIC AgICAgDQogICAgICAgICAgICAgICAgICAgICAgICAg ICAgICAgICAgICAgICAgICAgICAgICAgICAgICAgICAgICAgICAgICAgICAgICAgICAgICAgICAgICAg ICAgICAgICAgICAgICAgDQogICAgICAgICAgICAgICAgICAgICAgICAgICAgICAgICAgICAgICAgICAg ICAgICAgICAgICAgICAgICAgICAgICAgICAgICAgIC AgICAgICAgICAgICAgICAgICAgICAgICAgDQogICAgICAgICAgICAgICAgICAgICAgICAgICAgICAgIC AgICAgICAgICAgICAgICAgICAgICAgICAgICAgICAgICAgICAgICAgICAgICAgICAgICAgICAgICAgIC PdPKImARWqPBe3O1jcZTAeGBXyHM5aSNf0Xb0+DQoN WzPnOJO1crFlgC1OLB3kz8EdPDtfBZGie3EeZLq4LE9JEHIcOEevZM8DYSrqhx4CFJFaHSBwiWBHk0gq PmFeLSZ3NTWnPedeNF8HGQOyG0tsctKdGOKtBYZLOLuwIUOSVW2DRsSeY9MipR28SJLFVa6+DQplbmRv ThjUXyO4YEPzg4SnFOd0KS5QKDMpNtsvo4QxUjdiMX BHZQavPE5IVWU4SRY6JSDvTr1GWZVsS517erBoHX7KQz7GDhGzPL0ufp3NQahlRCGuBinFSer6JDwlHY 7ChQQeXUfFcg1sloQrqgSEj1NxfrOjaHLJHPXcG0RxNAKgXOLgKAJuWBxaUwRhXVIyYj1aGM0iBUMyNG TcNjObGYKNQN0BXICzIWOgvPKsFLTyYOCFIY8EGAmb LGD8BGBolvAttOLnUHmvLS5NAAWsdjIoNcyiGFWXMGu+Ko2CKF2ng2DuKImtQXVwJY3sto0ONPzTGzFz V1U2cPNlO4J4ZJfbDe8LQWLuNKTzGyCyCGMZGTugEH2ELX1uhmP3UK2HqCTtOARwBUJmiREjFIu8L78t iLAsJIhyFE1TGYO+Mame+Xb8FBIJeZDZxGRXbQzSnYX POCjAsB7VmI5RQo0GxQ2NnJE54cGijhzBqZAndAR6ABE9rHQYbHVDOBI8MeOVleW6vneDlAiEpTOHCBk NzU06kwAFlDTTrMKE4WVPbAi1AEPZeK1CkcvBevJneghAdHPRzMUHQOL1HDJnbsePjiJLadRckXR48nZ bdPE4MRd8RWaRuBN0vcm8IhNYbEq3TOWOgAG9BYJRl VCSxCYXxABY3SCHiLkFdFKffWXIlGHDgXQS7LDLtOFMvFB8TIzMdJEPaGgEyTiPeLLAsPGAbga5YYRDj SZPtVQe6KMStRLDvCWLkLBxaXKExHTNeWFQ5ISOrRVGfAU9GCjWeBSDkZLD6LrPjZTRpLQVyhs6QTHLk KBRmZlvwCgXvAJXfBKPkQQsxCLYrILJ0SLQ8QMEkUP FpLD8VOuWiMBCnZFUnRUXiALUuQVPabf2MVRXpURPhWaOrGKLnGJHmUQNhQUrzBVHfYDD6RXB6FBYnAQ DpPN4AQdUdRUJrRYn6GCmgJMVaLLYkge2GWAOqMOImQGQ6ExTyZXDaVMFsXUvaXJZaMQX9OVN7ODZiGS ZkAU6VDuTbXMWsUIkiBpCvOZEdQJCghh8DBHVqDZDf RXU4VsSmFQElXKGaRCefNRGcVEVaLqvhLNEwCYEmYV5QRmVxZDQvLyOiZCGsPAFzETTqsr5LXLAwQMIf SCE0QJHzGDFaUYNyJXqzWUHoOJPzHmu4QFBhZVKbMK2YPwFjKORqIzBmDFXgDBBeBOCbkr2UCCXjYRIf MjUyMSAwMDAwMCBuDQowMDAwMDIyNjkyIDAwMDAwIG 0XPhYlAEChLxE1FdRvIYJaRVUihf0RZESmRAGpLtuoHFLuYUSkDADxAChdMZXrCGM2SWVzESPkJQIbRD 4UEcBhAZNgVoZ3QqRsMFSdPGVbic3ZPLFoDCXnLOq1WHYgSCLyXDCsMQplLWKxJJD0IMMdMXYhKBTrUF 8VMmAuRCZmIqElTWThOJJdUOVakc4NwQVxqDsarb8T PKuWGw1SuAapAMHmVVtcQv2kjNHxIBBkRODYEr9ErxAhFYLiNTKQSWllERQuCCZ6X7VrPREjYeL4KVa2 TZCqBhQ7BOJoRHS3SOfjXZZlScE5GcG9PTT3M3T0OBY7Oys5JGJxGWv4O2AuUYsgGEZ1CDW+KX0lWVh+ Qx4Dw6JjklH9ohKpXLbbCcM4Dq2NFIJNY1ZGIz== ID Date Data Source CHEMO SPINE LS COMPLETE 06/18/2020 12:00:00 AM EDT eCW1 ([facility]) Name Value Range Interpretation Code Description Data Janice rce(s) Supporting Document(s) CHEMO SPINE LS COMPLETE eCW1 ([facility]) ID Date Data Source [id number] 05/22/2020 03:05:47 PM EDT Health system Name Value Range Interpretation Code Description Data Janice rce(s) Supporting Document(s) Progress Note [facility] JKRFTx6uIdTJJaGg87/HZTqnUJNsu7BrKHrmAHa5XLqmEMJqY1WdTTK5eZ7xCCY3JZfSHcUeEwLyChB7 lbm [file] AgICAgICAgICAgICAgICAgICAgICAgICAgICAgICAg ICAgICAgICAgICAgICAgICANCiAgICAgICAgICAgICAgICAgICAgICAgICAgICAgICAgICAgICAgICAg ICAgICAgICAgICAgICAgICAgICAgICAgICAgICAgICAgICAgICAgICAgICAgICAgICAgICAgICAgICAN CiAgICAgICAgICAgICAgICAgICAgICAgICAgICAgIC AgICAgICAgICAgICAgICAgICAgICAgICAgICAgICAgICAgICAgICAgICAgICAgICAgICAgICAgICAgIC AgICAgICAgICANCiAgICAgICAgICAgICAgICAgICAgICAgICAgICAgICAgICAgICAgICAgICAgICAgIC AgICAgICAgICAgICAgICAgICAgICAgICAgICAgICAg ICAgICAgICAgICAgICAgICAgICANCiAgICAgICAgICAgICAgICAgICAgICAgICAgICAgICAgICAgICAg ICAgICAgICAgICAgICAgICAgICAgICAgICAgICAgICAgICAgICAgICAgICAgICAgICAgICAgICAgICAg ICANCiAgICAgICAgICAgICAgICAgICAgICAgICAgIC AgICAgICAgICAgICAgICAgICAgICAgICAgICAgICAgICAgICAgICAgICAgICAgICAgICAgICAgICAgIC AgICAgICAgICAgICANCiAgICAgICAgICAgICAgICAgICAgICAgICAgICAgICAgICAgICAgICAgICAgIC AgICAgICAgICAgICAgICAgICAgICAgICAgICAgICAg ICAgICAgICAgICAgICAgICAgICAgICANCiAgICAgICAgICAgICAgICAgICAgICAgICAgICAgICAgICAg ICAgICAgICAgICAgICAgICAgICAgICAgICAgICAgICAgICAgICAgICAgICAgICAgICAgICAgICAgICAg ICAgICANCiAgICAgICAgICAgICAgICAgICAgICAgIC AgICAgICAgICAgICAgICAgICAgICAgICAgICAgICAgICAgICAgICAgICAgICAgICAgICAgICAgICAgIC AgICAgICAgICAgICAgICANCiAgICAgICAgICAgICAgICAgICAgICAgICAgICAgICAgICAgICAgICAgIC AgICAgICAgICAgICAgICAgICAgICAgICAgICAgICAg ICAgICAgICAgICAgICAgICAgICAgICAgICANCjw/qMQmE2klmVDiofG8Z6qkWm8NXp7SEK3ba5VhHPRx IYzfglRwXjgPBnFuJDHpLyaOLvz4KUwrBF0WdQHwU4VsK0BsVVwsJZ0GAJTdDPAacZUdRSLuWAPxTmA4 CHFoQShsZT2WiMVuKXcrQVWkQDCwUoSkMXJyTC0RCB RoU250imTsBi6JYs0GLcSbKJ5iga0UQoHdUQOuYbkQZav5VYufZZ5TmJPeqWDyHHZaNCRTVbDlE6clb9 ZzSdYzJYFCYPohXV8At4DceYYxTJj+Rd0VUU8xw0JnKAwtEXUwXU4quj8FEInXZrNvZ2PznPcwJHCrh2 uoKFUrEW1gnWSuHXJ8VRulj8JtcdJlHLUzN3rgjupu NDIiTLVtCn7jZG2fMIZcVXNkKuCjDJIKGN7GITWpJHYfpKKvZRNqPFIVOO0ULNbrWMS0QPFepgNyqNPx LFghBI5WPCMwqrNwWmDtKCFKQEs+Bc0URD1yy4FbJZofWkFzOO3ujo6TYUmMIsBxR3J7pYDiJ0I5HIzb Br8PRBFuSHUdCpRgWSHMGGlrTU4LJJ3lmjK6YB9KlI UtGAHoLJUjpJQkXSv4W90jdGNhJYztYA9CHWU+Mame+Yq6ZOSXvCXBhEGXsYkIqYFUWScYkH3JqD4OKp8 WhR1IzXB42oRqajmVtURccEB3DAG3rHORyCBVYCR5KyXTeeQ4rqdNvUZQcOBQWWqNpT94loIYxRWPzRP JvTHFjFx1BQPTbS9AhnkVgiMhevfRsZHWfNNSWHI2A EMyodyOmfBXjiIutFE84eFnoZN4USt5UDeVsOZ6hwb3FxDOuKz3IGDMbKr8EPGFiAPKuEWKvVXQ7TILc IhLdXQltIFBrSEDyAQF9SFUfPNBcMG3POoEsJSTkGpOnKiMlECLfMOAllv2RQYLpXTPwItH8GZBoSKYf XUFpEEldDJLdGINtIJH8HXFrOSIbMZ6FFrTlRHQcVF O8XSDxPGYfFOHkcy4PJXTcNJOxDjc4SKFiSKJeVPUvZGtiRYWuMSX3Iqj2WPYwAETyEP9NLdYqITTbGA AkSXEaUMVuGNDvmb9CHRDtZIEpKPi2WAWbMVNyPDFfWItgOBXfFNB3XQY0SXUvZZZiKO1FEqSaIYDqBQ VdQvRuBSLdCSOwec4ILMRiZFQtFaS5AHJiFNTgQFEu LNbjMRWiHTO7BKe8VDLxRVOzPE8UWdNsBBBqCIm8ZPMaJONzZSDwaj6JMVGeWCZaVPUjJUQeABHgWUYr HHyjEDXgFNT8QIUcCNSvLGRaZC5TFyBcTXJaODw4KFxwOPGyLVXsde8QKVVeNULkHPt7RTLoHFKgPYLq LAvyKPKuIOSvPPF6VRRkCNLcAF6QFpJuTDWkOhT1NS bzJANnCGLuju8XYDWfIXKlNBO7LUOuHYJkZTAoYMdmCQZkCDRrWpRpAARpMQGrYZ9EEcIcWAJkLeC8OG caEOVfMSTymx0LFZAyXHOwLkQfFtJbNFIeEAJuYJukACMuIOGmKwjdYUWhRDZlBY6URrXhAKIzIdY9Zy MxDSHrAQFrsu5GgYKfuClghj4TJJjXVf5UkAtjAJO5 XDduZh4wuXQdZiWuWDIJCp9KsmYfUIGxJIQQXYjjGJFyYPMcRrB6ZRFwOnW2DUNeJDM5P1QwTBMxZSFk KKEtYyltOcE9PCXsGHYkMtP5OsT4SjVyWhsuYBXjWdC1QICnENH4D0P+WJ3gMRy+Nw6Qr3EnupC7ryMg WFipCcO1Vc0DADBDC9PNKx== ID Date Data Source [id number] 02/28/2020 04:01:32 PM [facility] Name Value Range Interpretation Code Description Data Janice rce(s) Supporting Document(s) Progress Note [facility] TIABQo8kFzXJSeOt69/RKBvhSLXtm1MqFEyaQJh5XNerXMNjF6ZjDKT6hX3tUZA4AYdASoQhZyUzWxEd lbm [file] 4+VBircHQozWboXMEEWtP5UXgrPMueJSKTCz4I ID Date Data Source [id number] 02/26/2020 10:36:42 AM [facility] MR SPECTROSCOPY [id number] RESULTInterpr eted by:GARRETT Odomlinical Indication: 54 years Male, radiation necrosisMultiplanar multisequence MR images of the brain without and with contrast were submitted for interpretation. MR spectroscopy at 35 ans 144 were submitted for interpretation.Comparison: 11/22/19 Compared to the prior study, there has been an increase in the size of the enhancing lesion within the high right frontal convexity. The enhancement is somewhat gyral in pattern but this may just represent the residual postoperative cavity. There is slightly increased surrounding edema but no significant change in the mass effect on the right lateral ventricle. There is no hydrocephalus. There is no midline shift. Edema/gliosis is noted within the right frontal lobe surrounding the area of enhancement. There is no acute intraparenchymal hemorrhage. There is no restricted diffusion. The pituitary gland is not enlarged. The posterior pituitary is identified. The cerebellar tonsils are normally located above the foramen magnum. Flow voids at the skull base are intact.Limited perfusion shows increased perfusion in the right frontal lobe but MR spectroscopy was somewhat contradictory showing areas of increased lactate as well as diminished choline, creatine and RUSSELL peaks but then increased choline to RUSSELL ratio.Impression: Slight interval increase in the size of the enhancing lesion within the high right frontal lobe and slightly increased surrounding edema. Given the findings on MR spectroscopy and perfusion, the findings could represent tumor superimposed on radiation necrosis.This document has been electronically signed by Parul Manley MD on 02/26/2020 10:34 AM Name Value Range Interpretation Code Description Data Janice rce(s) Supporting Document(s) ID Date Data Source [id number] 02/26/2020 10:36:42 AM [facility] MR BRAIN WITH AND WITHOUT CONTRAST [id number] FINAL RESULTInterpreted by:GARRETT Odomlinical Indication: 54 years Male, radiation necrosisMultiplanar multisequence MR images of the brain without and with contrast were submitted for interpretation. MR spectroscopy at 35 ans 144 were submitted for interpretation.Comparison: 11/22/19 Compared to the prior study, there has been an increase in the size of the enhancing lesion within the high right frontal convexity. The enhancement is somewhat gyral in pattern but this may just represent the residual postoperative cavity. There is slightly increased edelmira rounding edema but no significant change in the mass effect on the right lateral ventricle. There is no hydrocephalus. There is no midline shift. Edema/gliosis is noted within the right frontal lobe surrounding the area of enhancement. There is no acute intraparenchymal hemorrhage. There is no restricted diffusion. The pituitary gland is not enlarged. The posterior pituitary is identified. The cerebellar tonsils are normally located above the foramen magnum. Flow voids at the skull base are intact.Limited perfusion shows increased perfusion in the right frontal lobe but MR spectroscopy was somewhat contradictory showing areas of increased lactate as well as diminished choline, creatine and RUSSELL peaks but then increased choline to RUSSELL ratio.Impression: Slight interval increase in the size of the enhancing lesion within the high right frontal lobe and slightly increased surrounding edema. Given the findings on MR spectroscopy and perfusion, the findings could represent tumor superimposed on radiation necrosis.This document has been electronically signed by Parul Manley MD on 02/26/2020 10:34 AM Name Value Range Interpretation Code Description Data Janice rce(s) Supporting Document(s) ID Date Data Source [id number] 02/06/2020 12:00:00 AM EST [facility] Name Value Range Interpretation Code Description Data Janice rce(s) Supporting Document(s) 2019-nCoV RNA XXX RUSSELL+probe-Imp [facility] This lab was ordered by [facility] and reported by [employer]. ID Date Data Source [id number] 11/22/2019 03:59:16 PM EDT Health system Name Value Range Interpretation Code Description Data Janice rce(s) Supporting Document(s) Progress Note [facility] ZNYLYh5yPlEEQsPz68/TIIewPUBxk5GqETmaJIh7IIkpBGCpY4DrBKK5aJ5eODD3OIxBEsYcYcTjCRMa [facility] [file] +hog slaughterer+6mPrDfa2x2LpFm00jaxOnjpSsJentJHNh1Ow+tVZhLL/jdD+urRTSyjQt518aUaN67rEiPEdTHD [file] ogICAgICAgICAgICAgICAgICAgICAgICAgICAgICAg ICAgICAgICAgICAgICAgICAgICAgICAgICAgICAgICAgICAgICAgICAgICAgICAgICAgICAgICAgICAg ICAgICAgICAgDQogICAgICAgICAgICAgICAgICAgICAgICAgICAgICAgICAgICAgICAgICAgICAgICAg ICAgICAgICAgICAgICAgICAgICAgICAgICAgICAgIC AgICAgICAgICAgICAgICAgICAgDQogICAgICAgICAgICAgICAgICAgICAgICAgICAgICAgICAgICAgIC AgICAgICAgICAgICAgICAgICAgICAgICAgICAgICAgICAgICAgICAgICAgICAgICAgICAgICAgICAgIC AgDQogICAgICAgICAgICAgICAgICAgICAgICAgICAg ICAgICAgICAgICAgICAgICAgICAgICAgICAgICAgICAgICAgICAgICAgICAgICAgICAgICAgICAgICAg ICAgICAgICAgICAgDQogICAgICAgICAgICAgICAgICAgICAgICAgICAgICAgICAgICAgICAgICAgICAg ICAgICAgICAgICAgICAgICAgICAgICAgICAgICAgIC AgICAgICAgICAgICAgICAgICAgICAgDQogICAgICAgICAgICAgICAgICAgICAgICAgICAgICAgICAgIC AgICAgICAgICAgICAgICAgICAgICAgICAgICAgICAgICAgICAgICAgICAgICAgICAgICAgICAgICAgIC AgICAgDQogICAgICAgICAgICAgICAgICAgICAgICAg ICAgICAgICAgICAgICAgICAgICAgICAgICAgICAgICAgICAgICAgICAgICAgICAgICAgICAgICAgICAg ICAgICAgICAgICAgICAgDQogICAgICAgICAgICAgICAgICAgICAgICAgICAgICAgICAgICAgICAgICAg ICAgICAgICAgICAgICAgICAgICAgICAgICAgICAgIC AgICAgICAgICAgICAgICAgICAgICAgICAgDQogICAgICAgICAgICAgICAgICAgICAgICAgICAgICAgIC AgICAgICAgICAgICAgICAgICAgICAgICAgICAgICAgICAgICAgICAgICAgICAgICAgICAgICAgICAgIC AgICAgICAgDQogICAgICAgICAgICAgICAgICAgICAg ICAgICAgICAgICAgICAgICAgICAgICAgICAgICAgICAgICAgICAgICAgICAgICAgICAgICAgICAgICAg AUBoFXIkSXDlUGOsCWLyYNGdFQf0H4qbKLAuDYDdOG0oGYe2Ic0+RFvRVnNeJHP7ssTrxQ4ETW4jp8Zg WSrhMMXlq6DvQJt4LM6VAHMlPGggCZ6XDFvmbn5NVC KjANEghXYCc4pjZyFhXEM5NQMdJhwqRP7UANUjZ1iinqTxEYMzFULXFYyaNYBPAGmxBSKQAN7JJjWnU7 GtxO02MUKUDk6+DUaoorMhAcsOZfT1NLPat5CuFAd4IK0VDYExXcqwa7SeMpyyFKFHIElgVX6MZRB2HR A2ZGMlIb8TCWMsS408lqViZN6LWe2JEqArHR7vap9H RqesSSFcNeeDEns1KIdaIT5ApJAtLAaUcu6raeGsdoSLu0NgleVwlGQJMNJgR8PqYZYpCTLuZNNgUBzv DnMeRIXsUK9wAb6cUMXfJYFnUoMiVKGCOV8IVIZpFTSiaYGdSVDyIOPEYG6ICXkcAFO3LHJqvpCwhJQs AIrmWT2VFVMzjbVeBlFiQEORIMf+Rv9CSQ4kk5XoRO spSZReOQ6bbp4OFMkYHnQuF0J7gOSoF7Q8HMteUm1LBDZtSXMhMoTvNDRLJUeiKJ1KEI1lalI8QO3IkV PvEYXtJKLhxQAzMHm0D94bbFMoVQepXE1INAJ+Mame+Oo2OBWVbRYRtCZYrYfRxYZPRMfTbH2VzD5HGv8 DeS0OvOO41rMcmokQnFSqtEX3KFA0qADLpKIBRAI3R iNVdxF5yquPgGaLmMNGBTrUtC08ojGPtRWJhOPX9GHNpBz5BYKPyJ8HjbnLfwWvawcHxOAJcCPFXTP1K XOtrudVfbUEevFumAA65rYyqIZ8WUg0ZHqYzFT5ynj6OnVZaVq9BBUWcUU5OBSYkISWiDWQfKUJ2SXMz WxVpCKssUPWvKKNvYRN3JHEqXBJdMF3MBtDeWNXcDu KoDVUkFYSaGEYnxg9WHTVlANHvAjp1YoDtKPOeKQZjBWkhCFXjVAMfFQN9ZEAcMWPjED1MQcSxGEMbWI K9ZxwsZFAoPELsvj8KIAUeFDXyAzf6EPDiYRIyDRCkDPrbSBTjOXV8NoYyKAMkSPAxOT2ZDtQjFLOyAY b5AFqdWJSaVRAruy2HFZTiJJQcSGS9MzPpXCSaMAKj KErvGDItFWG1WpwdYSZwLKInXB3VFkFrHBLmFJa2JsEvBFJzYBLqgt7KZMTjFXWdWGqpUuHgHMCvTPQs BDxwULKyKHZgJMIvVPIsPQFmLC2DDyRoELVdAOP7MxbkTNBfMMMydq3BOUBaJOEwYPO1RPFrWEPpWVAq TDakVYSpPPCoLxX9ONUqXIHfUZ1ADdHhFTZiPmN7UZ piQWPvCWTqjt3VCIZwNYCgZlIaUTCgRFKjLJXzFTbyEGHvLJDmTyCzBRTvUGQyYG9XJpXfXGTjSzA9Ep MiSCXeTGWfng2JZFRxGNEjCbrbLLSdQDJzUVBcDWlbCFIxVZH0NkAuWBMkHMNnUR8EJtFuKTCoIdR2GS NrJCJzJWYztd4DMQMoHGAxJSDrXGUjINAoMNOxVEjf ZDGqZXH4SUD5TBOtWNCdDH7BMtWgELLxLrP0TXTrBJTrWLUwma2NIGQoMSGkRxk6GzNeBLBrPLExANco BQHbTLS8CHR9VYQpQSQfJD9MYcNyPMkhXOHLZrs6IHozD9s6BYIwVW1UA5Niv8BxLlkmIBZNMJrmWS2i kvTlXWRsCh5PZ3bMPfn3NUovHXD3K3BzDsF1LYTkOU UbFKJ2OmTjRWR2JBPxIA1sFNdeJQZeQhLiMzX9Lce4KcGrWcL0KQyqUmEtCDr0PhJxEmFhJL6DZa0COp S4MKY7rHQbFp8OAelqPaFFDfXxYE4LYBa= ID Date Data Source [id number] 11/22/2019 02:56:22 PM [facility] MR BRAIN WITH AND WITHOUT CONTRAST [id number] FINAL RESULTInterpreted by:Jennifer Pedroza MBBSEXAMINATION: MR brain with and without contrastCLINICAL INDICATION: Follow-up, post resection of malignant meningioma.TECHNIQUE: Multiplanar and multisequence MR images of the brain were obtained on 3.0 Mabel MRI scanner before and after intravenous administration of contrast.COMPARISON: MRI of the brain dated 07/05/2019. FINDINGS: Postsurgical changes with right frontal craniotomy defect is again seen. There is thick enhancement of the overlying dura slightly increased from prior study with interval new heterogenous parenchymal enhancement in the right anterior frontal lobe measuring approximately 2 cm x 1.7 cm x 1.2 cm in AP, craniocaudal and transverse dimensions. There is interval progression of T2, FLAIR hyperintensity in the right frontal white matter consistent with vasogenic edema.The ventricles are stable in size and configuration. The basal cisterns are patent. There is no acute intracranial hemorrhage or evidence of acute infarction. No mass effect, shift of the midline structures or abnormal extra-axial fluid collections are present. The pituitary gland is not enlarged. Minimal mucosal thickening is seen in ethmoidal air cells and left maxillary sinus. Mastoid air cells are clear. Orbits are unremarkable.IMPRESSION: Increasing edema with new heterogenous parenchymal enhancement in the right anterior frontal lobe near the site of nodular enhancing lesion seen on previous scan. It may represent recurrence or radiation necrosis. There is also new nodular enhancement measuring about 5 to 6 mm of the dura beneath the craniotomy site, situated adjacent to larger lesion. If needed, Further evaluation with MR Spectroscopy as well as a MR perfusion is recommended.Findings were communicated via e-mail to Dr Coats by Dr. Caraballo at 11/22/2019 2:50 PMThis document has been electronically signed by Bear Caraballo MD on 11/22/2019 2:54 PM Name Value Range Interpretation Code Description Data Janice rce(s) Supporting Document(s) Procedure Social History Code Duration Value Status Description Data Source(s ) Smoking 11/21/2020 12:00:00 AM EDT Current some day smoker com pleted Current some day smoker eCW1 ([facility]) Smoking 06/18/2020 12:00:00 AM EDT Current Smoker completed Curre nt Smoker eCW1 ([facility]) Smoking 06/18/2020 12:00:00 AM EDT Current Smoker completed Curre nt Smoker eCW1 ([facility]) Smoking 05/20/2020 12:00:00 AM EDT Current Smoker completed Curre nt Smoker eCW1 ([facility]) Alcohol intake 04/19/2020 12:00:00 AM EST Yes completed [facility] Smoking 04/19/2020 12:00:00 AM EST Former smoker completed Former smoker [facility] Smoking 01/26/2020 12:00:00 AM EST Current Smoker completed Curre nt Smoker eCW1 ([facility]) Smoking 01/26/2020 12:00:00 AM EST Current Smoker completed Curre nt Smoker eCW1 ([facility]) Alcohol intake 11/22/2019 12:00:00 AM EDT Current non-d marie of alcohol (finding) completed Current non-drinker of alcohol (finding) [facility] Tobacco use and exposure 11/22/2019 12:00:00 AM EDT Never used co mpleted Never used [facility] Cigarette pack-years 11/22/2019 12:00:00 AM EDT UNK completed [facility] Cigarettes smoked current (pack per day) - Reported 11/22/19 12:00:00 AM EDT UNK completed [facility] Smoking 11/22/2019 12:00:00 AM EDT Former smoker completed Former smoker [facility] Vital Signs ID Date Data Source UNK Name Value Range Interpretation Code Description Data Source(s) Body weight 183.12 [lb_av] 183.12 [lb_av] eCW1 ([facility]) Body weight 83.06 kg 83.06 kg eCW1 ([facility]) Body height [in_i] eCW1 ([facility]) Body mass index (BMI) [Ratio] 25.90 kg/m2 25.90 kg/m2 eCW1 ([facility]) Heart rate 62 /min 62 /min eCW1 ([facility]) Respiratory rate 16 /min 16 /min eCW1 ([facility]) Body temperature 98.3 [degF] 98.3 [degF] eCW1 ( [facility]) Systolic blood pressure 119 mm[Hg] 119 mm[Hg] e CW1 ([facility]) Diastolic blood pressure 75 mm[Hg] 75 mm[Hg] eCW1 ([facility]) Systolic blood pressure 110 mm[Hg] 110 mm[Hg] M EDENT ([facility], ) Diastolic blood pressure 82 mm[Hg] 82 mm[Hg] [facility] Body height 71 [in_i] 71 [in_i] [facility] ([facility]) 5'11" Body weight 182.00 [lb_av] 182.00 [lb_av] MEDEN T ([facility], ) Body mass index (BMI) [Ratio] 25.4 kg/m2 25.4 k g/m2 [facility] ([facility], ) Daisy body weight 172 [lb_av] 172 [lb_av] MEDEN T ([facility], ) Body weight 82.555 kg 82.555 kg [facility] ([facility]) Body surface area Derived from formula 2.03 m2 2.03 m2 [facility] ([facility], ) Body weight 183 [lb_av] 183 [lb_av] eCW1 ([facility]) Respiratory rate 18 /min 18 /min eCW1 ([facility]) Body temperature [degF] eCW1 ([facility]) Systolic blood pressure 125 mm[Hg] 125 mm[Hg] e CW1 ([facility]) Diastolic blood pressure 74 mm[Hg] 74 mm[Hg] eCW1 ([facility]) Body height [in_i] eCW1 ([facility]) Body mass index (BMI) [Ratio] 25.88 kg/m2 25.88 kg/m2 eCW1 ([facility]) Heart rate 78 /min 78 /min eCW1 ([facility]) Body weight 186.4 [lb_av] 186.4 [lb_av] eCW1 ([facility]) Body height [in_i] eCW1 ([facility]) Body mass index (BMI) [Ratio] 26.36 kg/m2 26.36 kg/m2 eCW1 ([facility]) Heart rate 71 /min 71 /min eCW1 ([facility]) Respiratory rate 16 /min 16 /min eCW1 ([facility]) Body temperature 98.4 [degF] 98.4 [degF] eCW1 ( [facility]) Systolic blood pressure 126 mm[Hg] 126 mm[Hg] e CW1 ([facility]) Diastolic blood pressure 75 mm[Hg] 75 mm[Hg] eCW1 ([facility]) Systolic blood pressure 122 mm[Hg] 122 mm[Hg] [facility] Diastolic blood pressure 80 mm[Hg] 80 mm[Hg] [facility] Heart rate 65 /min 65 /min [facility] Body height 177.8 cm 177.8 cm [facility] Body weight 84.369 kg 84.369 kg [facility] Body mass index (BMI) [Ratio] 26.69 kg/m2 26.69 kg/m2 [facility] Oxygen saturation in Arterial blood by Pulse oximetry 98 % 98 % [facility] Body weight 176 [lb_av] 176 [lb_av] eCW1 ([facility]) Body temperature 97 [degF] 97 [degF] eCW1 ([facility]) Heart rate 70 /min 70 /min eCW1 ([facility]) Respiratory rate 19 /min 19 /min eCW1 ([facility]) Oxygen saturation in Arterial blood by Pulse oximetry 100 % 100 % eCW1 ([facility]) ID Date Data Source [id number] 11/22/2019 03:43:03 PM EDT Health system Name Value Range Interpretation Code Description Data Source(s) WEIGHT RECORDED 175 lb 175 lb [facility] Body height Measured 71 in 71 in [facility] Patient Treatment Plan of Care Planned Activity Planned Date Details Description Data Source (s) Naprosyn 500 MG 06/18/2020 12:00:00 AM EDT eCW1 ([facility]) Cyclobenzaprine hydrochloride 10 MG Oral Tablet 06/18/2020 12:00:00 AM EDT eCW1 ([facility]) Prednisone 20 MG Oral Tablet 06/18/2020 12:00:00 AM EDT eCW1 ([facility]) Naprosyn 500 MG 06/18/2020 12:00:00 AM EDT eCW1 ([facility]) Cyclobenzaprine hydrochloride 10 MG Oral Tablet 06/18/2020 12:00:00 AM EDT eCW1 ([facility]) Prednisone 20 MG Oral Tablet 06/18/2020 12:00:00 AM EDT eCW1 ([facility]) Famotidine 40 MG Oral Tablet 05/20/2020 12:00:00 AM EDT eCW1 ([facility])
[2020-12-16] MEDS ORDERED: MEPERIDINE 50 MG/ML 1ML VIAL (J2175) As Ordered ONE (12:36)
--- NOTE | 2020-12-16 12:45 | ROOR ---
Patient Name: Jim Sexton Procedure Date: 12/16/2020 12:19 PM Date of : 1965 Age: 55 Room: [facility] Gender: Male Note Status: Finalized Procedure: Upper GI endoscopy Indications: Heartburn Providers: Maximiliano Trevizo MD Referring MD: EDWIN RON DO Requesting Provider: Medicines: Monitored Anesthesia Care Complications: No immediate complications. Procedure: Pre-Anesthesia Assessment: - The heart rate, respiratory rate, oxygen saturations, blood pressure, adequacy of pulmonary ventilation, and response to care were monitored throughout the procedure. The Endoscope was introduced through the mouth, and advanced to the second part of duodenum. The upper GI endoscopy was accomplished without difficulty. The patient tolerated the procedure well. Findings: Moderately severe esophagitis was found in the lower third of the esophagus. Biopsies were taken with a cold forceps for histology. A medium-sized hiatal hernia was present. The entire examined stomach was normal. The examined duodenum was normal. Impression: - Moderately severe reflux esophagitis. Rule out Paris's esophagus. Biopsied. - Medium-sized hiatal hernia. - Normal stomach. - Normal examined duodenum. Recommendation: - Use Protonix (pantoprazole) 20 mg PO BID. - Telephone endoscopist for pathology results in 2 weeks. - (the script was sent to your pharmacy on file) Procedure Code(s): --- Professional --- 73740, Esophagogastroduodenoscopy, flexible, transoral; with biopsy, single or multiple Diagnosis Code(s): --- Professional --- R12, Heartburn K21.0, Gastro-esophageal reflux disease with esophagitis K44.9, Diaphragmatic hernia without obstruction or gangrene CPT copyright 2019 [employer]. All rights reserved. The codes documented in this report are preliminary and upon project asst review may be revised to meet current compliance requirements. Maximiliano Trevizo MD Maximiliano Trevizo MD 12/16/2020 12:45:16 PM Electronically signed by Maximiliano Trevizo MD Number of Addenda: 0 Note Initiated On: 12/16/2020 12:19 PM Estimated Blood Loss: Estimated blood loss: none.
--- NOTE | 2020-12-16 13:03 | ROOR ---
Patient Name: Jim Sexton Procedure Date: 12/16/2020 12:20 PM Date of : 1965 Age: 55 Room: [facility] Gender: Male Note Status: Finalized Procedure: Colonoscopy Indications: High risk colon cancer surveillance: Personal history of colonic polyps, Last colonoscopy: June 2017 Providers: Maximiliano Trevizo MD Referring MD: EDWIN RON DO Requesting Provider: Medicines: Monitored Anesthesia Care Complications: No immediate complications. Procedure: Pre-Anesthesia Assessment: - The heart rate, respiratory rate, oxygen saturations, blood pressure, adequacy of pulmonary ventilation, and response to care were monitored throughout the procedure. The Colonoscope was introduced through the anus and advanced to the terminal ileum, with identification of the appendiceal orifice and IC valve. The colonoscopy was performed without difficulty. The patient tolerated the procedure well. The quality of the bowel preparation was good. Findings: Multiple small and large-mouthed diverticula were found in the sigmoid colon. Two sessile polyps were found in the sigmoid colon. The polyps were diminutive in size. These polyps were removed with a cold snare. Resection and retrieval were complete. Internal hemorrhoids were found during retroflexion. The hemorrhoids were moderate. The exam was otherwise without abnormality on direct and retroflexion views. Impression: - Diverticulosis in the sigmoid colon. - Two diminutive polyps in the sigmoid colon, removed with a cold snare. Resected and retrieved. - Internal hemorrhoids. - The examination was otherwise normal on direct and retroflexion views. Recommendation: - Repeat colonoscopy in 5 years for surveillance. Procedure Code(s): --- Professional --- 26224, Colonoscopy, flexible; with removal of tumor(s), polyp(s), or other lesion(s) by snare technique Diagnosis Code(s): --- Professional --- Z86.010, Personal history of colonic polyps K64.8, Other hemorrhoids K63.5, Polyp of colon K57.30, Diverticulosis of large intestine without perforation or abscess without bleeding CPT copyright 2019 [employer]. All rights reserved. The codes documented in this report are preliminary and upon mail reader review may be revised to meet current compliance requirements. Maximiliano Trevizo MD Maximiliano Trevizo MD 12/16/2020 1:03:08 PM Electronically signed by Maximiliano Trevizo MD Number of Addenda: 0 Note Initiated On: 12/16/2020 12:20 PM Estimated Blood Loss: Estimated blood loss: none.
[2020-12-16 13:25] VITALS: BP 142/68
== END 2020-12-16 13:40 | disposition home or self-care (01) ==
LOC: M OPP 11:09
PROVIDERS: ATTEND Internal Medicine Gastroenterology
DX: Z12.11 Encounter for screening for malignant neoplasm of colon (principal); Z86.010 Personal history of colon polyps; Z80.0 Family history of malignant neoplasm of digestive organs; K63.5 Polyp of colon; K57.30 Diverticulosis of large intestine without perforation or abscess without bleeding; K64.0 First degree hemorrhoids; K21.00 Gastro-esophageal reflux disease with esophagitis, without bleeding; K44.9 Diaphragmatic hernia without obstruction or gangrene; R12 Heartburn; Z79.899 Other long term (current) drug therapy
CPT/HCPCS: 43239; 45385; 88305; J2175; J3010

== ENCOUNTER → 2021-11-24 | Outpatient (REF) | payer OTHER ==
[~2021-11-24] MED LIST changes: -LIDOCAINE 2% 100MG/5ML SDV (FOR ANES.) As Ordered ONE; -NS 1,000 ML IV ONE; -fentaNYL 100 MCG/2 ML INJECTION (J3010) As Ordered ONE; -propofoL 500 MG/50 ML VIAL As Ordered ONE
[2021-11-24 17:33] LABS: BASO # 0.1 10^3/uL (0.0-0.2); BASO % 0.8 % (0.0-1.0); EOS # 0.3 10^3/uL (0.0-0.5); EOS % 2.9 % (0.0-3.0); HEMATOCRIT 43.2 % (42.0-52.0); LYMPH % 22.9 % (24.0-44.0); MEAN CORPUSCULAR HEMOGLOBIN 28.6 pg (27.0-33.0); MEAN CORPUSCULAR HGB CONC 32.4 g/dl (32.0-36.5); MEAN CORPUSCULAR VOLUME 88.3 fl (80.0-96.0); MONO # 0.6 10^3/uL (0.0-0.8); NEUTROPHILS # 5.8 10^3/uL (1.5-8.5); NEUTROPHILS % 65.8 % (36.0-66.0); PLATELET COUNT, AUTOMATED 273 10^3/uL (150-450); RED BLOOD COUNT 4.89 10^6/uL (4.30-6.10); WHITE BLOOD COUNT 8.8 10^3/uL (4.0-10.0)
[2021-11-24 19:17] LABS: ALBUMIN 4.2 GM/DL (3.2-5.2); ALT/SGPT 21 U/L (12-78); BILIRUBIN,TOTAL 0.7 MG/DL (0.2-1.0); BLOOD UREA NITROGEN 15 MG/DL (7-18); CALCIUM LEVEL 9.7 MG/DL (8.5-10.1); CARBON DIOXIDE LEVEL 28 MEQ/L (21-32); CHLORIDE LEVEL 107 MEQ/L (98-107); CHOLESTEROL LEVEL 254 MG/DL (<200); CHOLESTEROL RISK RATIO 6.512 (<5); CREATININE FOR GFR 1.16 MG/DL (0.70-1.30); GLOMERULAR FILTRATION RATE > 60.0 (>56); GLUCOSE, FASTING 89 MG/DL (70-100); HDL CHOLESTEROL 39 MG/DL (>40); IRON (FE) 50 UG/DL (65-175); LDL CHOLESTEROL 180 MG/DL (<100); NON-HDL-C 215 MG/DL; POTASSIUM SERUM 4.9 MEQ/L (3.5-5.1); SODIUM LEVEL 139 MEQ/L (136-145); TOTAL PROTEIN 7.3 GM/DL (6.4-8.2); TRIGLYCERIDES LEVEL 173 MG/DL (<150)
[2021-11-24 20:00] LABS: VITAMIN B12 LEVEL 352 PG/ML (247-911)
[2021-11-26 14:08] LABS: FOLATE 13.2 ng/mL (>3.0)
== END ==
LOC: M SFHCCLAY 10:04
PROVIDERS: ATTEND Family Medicine
DX: E78.2 Mixed hyperlipidemia (principal); D64.9 Anemia, unspecified

== ENCOUNTER → 2022-05-25 | Outpatient (REF) | payer OTHER ==
[2022-05-25 17:44] LABS: ALKALINE PHOSPHATASE 74 U/L (46-116); ALT/SGPT 29 U/L (7.0-40); AST/SGOT 19 U/L (<34); BILIRUBIN,TOTAL 0.6 MG/DL (0.3-1.2); BLOOD UREA NITROGEN 12 MG/DL (9-23); CALCIUM LEVEL 9.4 MG/DL (8.5-10.1); CARBON DIOXIDE LEVEL 27 MMOL/L (20-31); CHLORIDE LEVEL 106 MMOL/L (98-107); CREATININE FOR GFR 1.13 MG/DL (0.70-1.30); GLOMERULAR FILTRATION RATE > 60.0 (>56); GLUCOSE, FASTING 85 MG/DL (60-100); POTASSIUM SERUM 4.7 MMOL/L (3.5-5.1); SODIUM LEVEL 139 MMOL/L (136-145)
[2022-05-25 17:45] LABS: THYROID STIMULATING HORMONE 2.145 uIU/ML (0.55-4.78)
[2022-05-25 17:46] LABS: FREE T4 1.02 NG/DL (0.89-1.76)
[2022-05-25 17:48] LABS: BASO # 0.1 10^3/uL (0.0-0.2); BASO % 0.5 % (0.0-1.0); EOS # 0.2 10^3/uL (0.0-0.5); EOS % 1.3 % (0.0-3.0); HEMATOCRIT 45.2 % (42.0-52.0); HEMOGLOBIN 14.3 g/dl (13.5-17.5); LYMPH % 11.8 % (24.0-44.0); MEAN CORPUSCULAR HEMOGLOBIN 28.1 pg (27.0-33.0); MEAN CORPUSCULAR HGB CONC 31.6 g/dl (32.0-36.5); MEAN CORPUSCULAR VOLUME 88.8 fl (80.0-96.0); MONO % 5.9 % (2.0-8.0); NEUTROPHILS # 13.8 10^3/uL (1.5-8.5); PLATELET COUNT, AUTOMATED 269 10^3/uL (150-450); RED BLOOD COUNT 5.09 10^6/uL (4.30-6.10); WHITE BLOOD COUNT 17.2 10^3/uL (4.0-10.0)
== END ==
LOC: M SFHCCLAY 09:55
PROVIDERS: ATTEND Family Medicine
DX: R12 Heartburn (principal); D64.9 Anemia, unspecified; R42 Dizziness and giddiness

== ENCOUNTER → 2023-05-28 | Outpatient (REF) | payer OTHER ==
[2023-05-28 17:50] LABS: ALBUMIN 3.9 G/DL (3.2-5.2); ALKALINE PHOSPHATASE 71 U/L (46-116); ALT/SGPT 19 U/L (7.0-40); AST/SGOT 12 U/L (<34); BILIRUBIN,TOTAL 0.7 MG/DL (0.3-1.2); BLOOD UREA NITROGEN 17 MG/DL (9-23); CARBON DIOXIDE LEVEL 28 MMOL/L (20-31); CHLORIDE LEVEL 107 MMOL/L (98-107); CREATININE FOR GFR 1.05 MG/DL (0.70-1.30); GLOMERULAR FILTRATION RATE > 60.0 (>49); GLUCOSE, FASTING 91 MG/DL (74-106); IRON (FE) 65 UG/DL (65-175); POTASSIUM SERUM 4.8 MMOL/L (3.5-5.1); SODIUM LEVEL 138 MMOL/L (136-145); TOTAL PROTEIN 6.8 G/DL (5.7-8.2)
[2023-05-28 17:56] LABS: HEMATOCRIT 43.9 % (42.0-52.0); HEMOGLOBIN 13.9 g/dl (13.5-17.5); MEAN CORPUSCULAR HEMOGLOBIN 27.7 pg (27.0-33.0); MEAN CORPUSCULAR HGB CONC 31.7 g/dl (32.0-36.5); MEAN CORPUSCULAR VOLUME 87.6 fl (80.0-96.0); PLATELET COUNT, AUTOMATED 273 10^3/uL (150-450); RED BLOOD COUNT 5.01 10^6/uL (4.30-6.10)
== END ==
LOC: M SFHCCLAY 10:22
PROVIDERS: ATTEND Family Medicine
DX: D64.9 Anemia, unspecified (principal); R42 Dizziness and giddiness

== ENCOUNTER → 2023-10-13 | Outpatient (CLI) | payer OTHER | LOC: M RAD 16:18 | PROVIDERS: ATTEND Family Medicine | DX: Z12.2 Encounter for screening for malignant neoplasm of respiratory organs (principal); Z72.0 Tobacco use; J44.9 Chronic obstructive pulmonary disease, unspecified; J43.9 Emphysema, unspecified ==

== ENCOUNTER → 2023-12-20 | Outpatient (REF) | payer OTHER ==
[2023-12-20 17:19] LABS: BASO # 0.1 10^3/uL (0.0-0.2); BASO % 1.3 % (0.0-1.0); EOS # 0.3 10^3/uL (0.0-0.5); EOS % 4.6 % (0.0-3.0); HEMATOCRIT 43.2 % (42.0-52.0); HEMOGLOBIN 13.7 g/dl (13.5-17.5); LYMPH # 2.1 10^3/uL (1.5-5.0); LYMPH % 27.7 % (24.0-44.0); MEAN CORPUSCULAR HEMOGLOBIN 27.4 pg (27.0-33.0); MEAN CORPUSCULAR HGB CONC 31.7 g/dl (32.0-36.5); MEAN CORPUSCULAR VOLUME 86.4 fl (80.0-96.0); MONO # 0.6 10^3/uL (0.0-0.8); MONO % 7.4 % (2.0-8.0); NEUTROPHILS # 4.4 10^3/uL (1.5-8.5); NEUTROPHILS % 58.5 % (36.0-66.0); PLATELET COUNT, AUTOMATED 220 10^3/uL (150-450); WHITE BLOOD COUNT 7.5 10^3/uL (4.0-10.0)
[2023-12-20 17:40] LABS: ALBUMIN 3.8 G/DL (3.2-5.2); ALKALINE PHOSPHATASE 68 U/L (46-116); ALT/SGPT 15 U/L (7.0-40); AST/SGOT 11 U/L (<34); BILIRUBIN,TOTAL 0.7 MG/DL (0.3-1.2); BLOOD UREA NITROGEN 11 MG/DL (9-23); CALCIUM LEVEL 9.6 MG/DL (8.3-10.6); CARBON DIOXIDE LEVEL 27 MMOL/L (20-31); CHLORIDE LEVEL 108 MMOL/L (98-107); CHOLESTEROL LEVEL 221 MG/DL (<200); CHOLESTEROL RISK RATIO 5.58 (<5); CREATININE FOR GFR 1.04 MG/DL (0.70-1.30); GLOMERULAR FILTRATION RATE > 60.0 (>49); GLUCOSE, FASTING 87 MG/DL (74-106); HDL CHOLESTEROL 39.6 MG/DL (>40); IRON (FE) 69 UG/DL (65-175); LDL CHOLESTEROL 150.6 MG/DL (<100); MAGNESIUM LEVEL 2.1 MG/DL (1.8-2.4); NON-HDL-C 181.4 MG/DL; SODIUM LEVEL 140 MMOL/L (136-145); THYROID STIMULATING HORMONE 2.588 uIU/ML (0.55-4.78); TOTAL PROTEIN 7.2 G/DL (5.7-8.2); TRIGLYCERIDES LEVEL 154 MG/DL (<150)
== END ==
LOC: M SFHCCLAY 10:38
PROVIDERS: ATTEND Family Medicine
DX: R12 Heartburn (principal); D64.9 Anemia, unspecified; E78.2 Mixed hyperlipidemia; R42 Dizziness and giddiness

== ENCOUNTER 2024-05-15 10:28 | Day surgery (SDC) | payer OTHER ==
[~2024-05-15] VITALS: Ht 177.8 cm; Wt 84.2 kg
[2024-05-15 13:37] VITALS: TEMP 97.3
[2024-05-15 14:06] VITALS: BP 157/74; O2SAT 99
== END 2024-05-15 14:11 | disposition home or self-care (01) ==
LOC: M OPP 10:28
PROVIDERS: ATTEND Internal Medicine Gastroenterology
DX: Z12.11 Encounter for screening for malignant neoplasm of colon (principal); K63.5 Polyp of colon; K64.8 Other hemorrhoids; K57.30 Diverticulosis of large intestine without perforation or abscess without bleeding; Z80.0 Family history of malignant neoplasm of digestive organs; K21.00 Gastro-esophageal reflux disease with esophagitis, without bleeding; K44.9 Diaphragmatic hernia without obstruction or gangrene; K22.70 Barrett's esophagus without dysplasia; R12 Heartburn; Z79.899 Other long term (current) drug therapy; J44.9 Chronic obstructive pulmonary disease, unspecified; F17.210 Nicotine dependence, cigarettes, uncomplicated

== ENCOUNTER → 2024-12-21 | Outpatient (REF) | payer OTHER ==
[2024-12-21 18:43] LABS: PLATELET COUNT, AUTOMATED 358 10^3/uL (150-450)
[2024-12-21 18:49] LABS: IRON (FE) 23.0 UG/DL (65-175)
[2024-12-21 18:50] LABS: ALT/SGPT 25.0 U/L (7.0-40); AST/SGOT 18.0 U/L (<34); CALCIUM LEVEL 9.5 MG/DL (8.3-10.6); CARBON DIOXIDE LEVEL 27.0 MMOL/L (20-31); CHLORIDE LEVEL 106.0 MMOL/L (98-107); CHOLESTEROL LEVEL 137.0 MG/DL (<200); CHOLESTEROL RISK RATIO 3.48 (<5); CREATININE FOR GFR 1.04 MG/DL (0.70-1.30); GLOMERULAR FILTRATION RATE 81.7 (>49); LDL CHOLESTEROL 69.7 MG/DL (<100); MAGNESIUM LEVEL 2.0 MG/DL (1.8-2.4); NON-HDL-C 97.7 MG/DL; POTASSIUM SERUM 4.7 MMOL/L (3.5-5.1); SODIUM LEVEL 141.0 MMOL/L (136-145); TRIGLYCERIDES LEVEL 140.0 MG/DL (<150)
== END ==
LOC: M SFHCCLAY 11:00
PROVIDERS: ATTEND Family Medicine
DX: R42 Dizziness and giddiness (principal); D64.9 Anemia, unspecified; E78.2 Mixed hyperlipidemia; R12 Heartburn

== ENCOUNTER → 2025-02-09 | Outpatient (CLI) | payer OTHER | LOC: M RAD 07:25 | PROVIDERS: ATTEND Family Medicine | DX: F17.210 Nicotine dependence, cigarettes, uncomplicated (principal) ==